=== PATIENT | male | born 1960 | race Caucasian/White ===

== ENCOUNTER 2016-12-14 06:41 | Inpatient (IN) | payer BC ==
[~2016-12-14] VITALS: Ht 167.6 cm; Wt 90.0 kg
[2016-12-14] VITALS (11 sets, daily range): BP systolic 143–178; BP diastolic 78–91; PULSE 63–76; RESP 16–18; TEMP 97.9–98.7; O2SAT 97
[~2016-12-14 06:41] MED LIST: ASPI325T PO; CLOP75 PO; GLUCTAB PO; LEVEMIR SQ; LISI-360 PO; LOPR100T PO; RANI150T PO; ZOCO10TA PO
[2016-12-14] MEDS ORDERED: IOHEXOL 350 MG/ML 100 ML BTL (for Cath Lab) OTHER ONE (06:42)
[2016-12-14] MEDS: NS 1000P @30 MLS/HR (KVO) IV SCH (07:15)
[2016-12-14] MEDS ORDERED: LISI10TA3 PO (07:38)
[2016-12-14] MEDS ORDERED: OMEGCAP PO (07:38)
[2016-12-14] MEDS ORDERED: METF500T PO (07:38)
[2016-12-14] MEDS ORDERED: INSU1INJ13 SQ (07:38)
[2016-12-14] MEDS ORDERED: METO100T PO (07:38)
[2016-12-14] MEDS ORDERED: PRAV20TA2 PO (07:38)
[2016-12-14] MEDS ORDERED: NOVOINJ3 SQ (07:38)
[2016-12-14] MEDS ORDERED: COQ-30CA2 (07:38)
[2016-12-14] MEDS ORDERED: MULTTAB67 PO (07:38)
[2016-12-14] MEDS ORDERED: PANT40TA3 PO (07:38)
[2016-12-14] MEDS ORDERED: ASPI81TA5 PO (07:38)
[2016-12-14] MEDS ORDERED: HEPARIN-NS/PF INJ 1,000 ML ONE (08:12)
[2016-12-14] MEDS ORDERED: MIDAZOLAM HCL 2 MG/2 ML VIAL ONE ×2 (08:16→08:34)
[2016-12-14] MEDS ORDERED: ONDANSETRON HCL 4 MG/2 ML VIAL IV PUSH PRN (09:00)
[2016-12-14] MEDS ORDERED: LIDOCAINE HCL 1% 50 ML VIAL INFIL PRN (09:00)
[2016-12-14] MEDS ORDERED: MISC INFORMATION XX ONE (09:00)
[2016-12-14] MEDS ORDERED: SODIUM CHLOR 0.9% 250 ML INJ 250 ML IV PRN (09:00)
[2016-12-14] MEDS ORDERED: BACITRACIN OINT 0.9 GM PKT TOP ONE (09:00)
[2016-12-14] MEDS ORDERED: ATROPINE SULFATE 1 MG/ML VIAL IV PUSH PRN (09:00)
[2016-12-14] MEDS ORDERED: METOCLOPRAMIDE HCL 10 MG/2 ML VIAL IV PUSH PRN (09:00)
--- NOTE | 2016-12-14 09:01 | CATHPROC ---
[employer] HIS Report Study Information Study Number Admission Scheduled Start Study Start [id number] Dec 14 2016 6:41AM 12/14/2016 Dec 14 2016 8:03AM [facility] Cardiac Catheterization Admit Source Facility Department Other [facility] - Agronomy Instructor Physician and Clinical Staff Initial MD Jarvis, Nick Engine Testerdiana Patterson RN, Pal Mendez cathlab, cathlab Recorder Kathleen Urrutia,STICKER OPERATOR TECH2 Scrub Pema Lindsay,RT(R) Procedures Performed Procedure Location (Site) Vessel Name Angiogram LV LV Ventricle Coronary Angiograms LCA Left Coronary Coronary Angiograms RCA Right Coronary L Heart Cath Equipment Time Editor & Co Founder Description Size Mfg Part Number Used/Scraped TRANSDUCER, TRUWAVE [id number] 08:39 MARIEE PARKER * Used W/STOCKCOCK *[id number] [id number] *[id number] [id number] *[id number] [id number] *[id number] 08:39 [employer] PACK, CCL CUSTOM * Used *[id number] 08:39 [employer] PACER PEN, SKIN DUAL W/ RULER * Used *[id number] 08:39 [employer] MEDICAL SHEATH, FR6.5 PRELUDE 11CM FR 6.5 038ACT Used *[id number] 08:39 [employer] MEDICAL WIRE, 3MMJ .035 180CM 180CM Used *[id number] 08:39 NAM[employer] MANIFOLD, 4 PORT * Used *[id number] 08:39 [employer] OMNIPAQUE, 350 MG, 100ML 100ML [id number] Used 08:49 [employer] OMNIPAQUE, 350 MG, 50ML 50ML [id number] Used [id number] 08:39 [employer] BLANKET,WARM AIR CCL * Used *[id number] History: Allergies Allergy Reaction No Known Allergies History: Risk Factors Family History of Hypertension Dyslipidemia Previous ID Previous Heart Failure Premature CAD Yes Yes Yes Yes No Prior Valve Prior PCI Prior PCIDate Prior CABG Surgery No Yes 05/24/2000 No Cerebrovascular Peripheral Artery Chronic Lung On Dialysis Diabetes Diabetes Therapy Disease Disease Disease No No No No Yes Oral History: Stress Tests Stress or Imaging Studies Performed Yes Standard Exercise Stress Test No Stress Echo No Stress Test SPECT No Stress Test CMR Stress Test CMR Result Yes Negative Cardiac CTA Coronary Calcium Score No No History: Other Disease Selection Items CAD HTN History: ID/CV Data Previous Cath Date 05/24/2012 Labs Hgb (g/dl) Hct (%) WBC (l/cumm) Platelets (thousands) 11.60-17.00 35.00-51.00 4.00-11.00 150.00-450.00 14.4 41.6 5.4 170 Glucose (mg/dl) BUN (mg/dl) Creatinine (mg/dl) BUN:Creatinine (1:x) 74.00-106.00 7.00-18.00 0.50-1.30 10.00-20.00 139 23 0.9 25.6 Na (meq/l) K (meq/l) 136.00-145.00 3.50-5.10 143 4.1 INR (PTT:PT) 0.90-1.10 1.1 Medication Medication Total Dose (Bolus/Oral) Medication Total Dosage/Unit 1% XYLOCAINE 15 mL VERSED 3 mg Medications (Bolus/Oral) Medication Time Given Dosage/Unit Administered By Reason VERSED 12/14/2016 8:29:48 AM 2 mg Pal Patterson RN 2 mg VERSED given in lab by Pal Patetrson RN in Right Antecubital via Peripheral IV. Ordered by Nick Medellin ms. 1% XYLOCAINE 12/14/2016 8:34:20 AM 15 mL Nick Jarvis 15 mL 1% XYLOCAINE given in lab by Nick Jarvis in Right Groin via Subcutaneous. Ordered by Nick Medellin ms. VERSED 12/14/2016 8:35:34 AM 1 mg Pal Patterson RN 1 mg VERSED given in lab by Pal Patterson RN in Right Antecubital via Peripheral IV. Ordered by Nick Medellin ms. Medication (Drip) Medication Time Given Dosage/Unit Concentration/Unit Diluent (ml) Solution IV Solutions 12/14/2016 8:05:31 AM 0 mL (IV) 500 NaCl .9 IV Solutions given in lab by Pal Patterson RN in Right Antecubital via Peripheral IV. Pump/Drip Flow = 20 ml/hr using NaCl .9. Ordered by Nick Jarvis. Initial Case Assessment Cardiovascular HR Rhythm NIBP Chest Pain 61 NSR 165/89 0 Edema Present Skin color Skin None Normal Warm Dry Circulatory - Right Pulses Dorsalis Pedis Femoral 2 2 Scale (0,1,2,3,4,d) Circulatory - Left Pulses Dorsalis Pedis Femoral 2 2 Scale (0,1,2,3,4,d) Neurological State Oriented to time-place- Alert Moves all extremities person Respiration - General Respiration Rate SpO2 (%) (B/min) 16 98 Final Case Assessment Cardiovascular HR Rhythm NIBP Chest Pain 72 NSR 154/80 0 Edema Present Skin color Skin None Normal Warm Dry Circulatory - Right Pulses Dorsalis Pedis Femoral 2 2 Scale (0,1,2,3,4,d) Circulatory - Left Pulses Dorsalis Pedis Femoral 2 2 Scale (0,1,2,3,4,d) Neurological State Oriented to time-place- Alert Moves all extremities person Respiration - General Respiration Rate SpO2 (%) (B/min) 18 94 Chronological Log Time Study Chronological Log 8:05:22 Patient arrived via Bed. 8:05:23 Patient Name, D.O.B, / Armband Verified By R.N. 8:05:24 Consent signed by the physician and the patient and verified by the Agronomy Instructor staff. 8:05:24 Pre-op and post- op instructions given; patient acknowledges understanding of instructions. 8:05:25 Verbal Stimulation=2 Physical Stimulation=2 Airway=2 Respiration=2 TOTAL=8. (0=absent, 1=li mited, 2=present) 8:05:26 Presedation assessment performed by Agronomy Instructor RN. 8:05:26 Immediate Presedation assesment performed by physician. 8:05:27 Patient has been NPO for More than 6Hrs. 8:05:27 NO Skin Breakdown- 8:05:29 Patient Warmer Placed on the Table. 8:05:30 Neida Prominences Protected 8:05:30 A # 20 IV was noted in the Antecubital (right). Grade = 0 IV Solutions given in lab by Pal Patterson RN in Right Antecubital via Peripheral IV. Pump/Drip Flow = 20 ml/hr using 8:05:31 NaCl .9. Ordered by Nick Jarvis. 8:05:32 History and physical on the chart or being dictated. Vitals capture started with the following parameters, Patient=Adult, Interval=5 min, Initial Pr eupqfa=728 mmHg, 8:09:27 Deflation Rate=5 mmHg, Cuff placed on Left Arm 8:10:04 HR=61 bpm, NUEN=337/89 mmhg, SpO2=98.0 %, Resp=12 B/min, Pain=0, Gloria=10, Peterson=2 Assessment: Initial Case, HR=61 BPM, Rhythm=NSR, DJOL=667/89 mmhg, Chest Pain=0, Edema=None, Color=Normal, Skin = Warm, Dry Right Pulses: Ananda Ped=2, Femoral=2 8:11:04 Left Pulses: Ananda Ped=2, Femoral=2 Neurological: State=Alert, Ox3, WONG Respiration: Resp=16 B/min, SpO2=98 % 8:11:14 Reference ECG taken 8:15:10 HR=60 bpm, UILV=367/83 mmhg, SpO2=99.0 %, Resp=7 B/min, Pain=0, Gloria=10, Peterson=2 8:18:21 Bilateral groins prepped with 2% chlorhexidine, and draped after a 3 minute waiting time. 8:20:09 HR=58 bpm, WQOG=627/85 mmhg, SpO2=98.0 %, Resp=15 B/min, Pain=0, Gloria=10, Peterson=2 8:21:16 Pressure channel 1 zeroed. 8:24:31 MD paged 8:25:06 HR=57 bpm, GGNW=211/85 mmhg, SpO2=99.0 %, Resp=13 B/min, Pain=0, Gloria=10, Peterson=2 8:28:09 MD arrived. 8:28:12 Contrast Scanned 8:28:14 Immediate Presedation assesment performed by physician. 8:29:48 2 mg VERSED given in lab by Pal Patterson RN in Right Antecubital via Peripheral IV. Ordered by Nick Jarvis. 8:30:07 HR=62 bpm, YHCT=702/87 mmhg, SpO2=99.0 %, Resp=10 B/min, Pain=0, Gloria=10, Peterson=2 Time Out. Correct patient, correct procedure, correct physician, power injector not loaded with contrast with surgical 8:33:14 team present. Time Out Concurred by MD and individual staff in procedure. 8:33:36 Case Start 8:34:20 15 mL 1% XYLOCAINE given in lab by Nick Jarvis in Right Groin via Subcutaneous. Ordered by Nick Jarvis. 8:35:08 HR=70 bpm, DRVW=883/88 mmhg, SpO2=96.0 %, Resp=13 B/min, Pain=0, Gloria=10, Peterson=2 8:35:34 1 mg VERSED given in lab by Pal Patterson RN in Right Antecubital via Peripheral IV. Ordered by Nick Javris. 8:38:18 Access site was Right Femoral Artery. 8:38:34 A SHEATH, FR6.5 PRELUDE 11CM FR 6.5 was advanced into the Fem Art (right) using the Modified Seldinger technique. A JL 4.0 INFINITI CATHETER FR 6 was advanced over a wire. OMNIPAQUE, 350 MG, 100ML 100ML was use d for 8:39:06 injections. 8:40:13 HR=62 bpm, ZFBE=012/75 mmhg, SpO2=96.0 %, Resp=14 B/min, Pain=0, Gloria=10, Peterson=2 Recorded Pressure: Ao, HR=65, Condition=Condition 1 8:40:21 (Aorta) Ao 140/73/100 8:40:45 The LCA was injected and visualized at various angles. OMNIPAQUE, 350 MG, 100ML 100ML used. 8:43:06 Catheter was removed A JR 4.0 INFINITI CATHETER FR 6 was advanced over a wire. OMNIPAQUE, 350 MG, 100ML 100ML was use d for 8:43:08 injections. 8:43:23 The RCA was injected and visualized at various angles. OMNIPAQUE, 350 MG, 100ML 100ML used. 8:43:40 LV INJECTOR LOADED WITH CONTRAST AND VERIFIED TO BE FREE OF AIR BY PAL PATTERSON RN 8:44:32 Catheter was removed A PIGTAIL STR INFINITI CATHETER FR 6 was advanced over a wire. OMNIPAQUE, 350 MG, 100ML 100ML wa s used for 8:44:33 injections. Recorded Pressure: LV, HR=72, Condition=Condition 1 8:45:15 (Left Ventricle) LV 130/6/15 8:45:49 HR=68 bpm, MAZU=786/77 mmhg, SpO2=95.0 %, Resp=16 B/min, Pain=0, Gloria=10, Peterson=2 8:48:35 The LV was injected at 10 cc/sec for a total of 30. OMNIPAQUE, 350 MG, 50ML 50ML used. Recorded Pressure: LV, Ao, HR=66, Condition=Condition 1 8:48:54 (Left Ventricle) LV 141/8/13, (Aorta) Ao 139/65/96 8:49:09 Catheter was removed 8:50:00 Case End 8:50:07 HR=72 bpm, KJKV=299/80 mmhg, SpO2=94.0 %, Resp=18 B/min, Pain=0, Gloria=10, Peterson=2 8:54:14 Catheter(s) removed without difficulty 8:54:21 Sheath(s) left in place, will be removed in Holding Area 8:54:24 Sterile dressing applied to site 8:54:25 No case complications noted. 8:54:26 Cine recording checked. 8:54:31 Bedside Report will be given. 8:54:32 Contrast Scanned 8:54:35 A Left Heart Cath was performed. 8:55:09 Vitals capture stopped. Assessment: Final Case, HR=72 BPM, Rhythm=NSR, SVIG=271/80 mmhg, Chest Pain=0, Edema=None, Col or=Normal, Skin = Warm, Dry Right Pulses: Ananda Ped=2, Femoral=2 8:55:14 Left Pulses: Ananda Ped=2, Femoral=2 Neurological: State=Alert, Ox3, WONG Respiration: Resp=18 B/min, SpO2=94 % 8:57:40 [facility] Study - Contrast Media Used In Study Contrast Total Opened (mL) Total Used (mL) Total Wasted (mL) Omnipaque 80 80 0 End Study - Maximum Contrast Load Max Contrast Load (mL) 485.1 End Study - Radiation Exposure Fluoro Time (minutes) 1.2 End Study - Patient Disposition Complications Transferred To Telemetry Bed
--- NOTE | 2016-12-14 09:24 | MA ---
cc: JANET POP MD DATE: 12/14/2016 PROCEDURAL STATEMENT The patient was prepped and draped in usual fashion. A six sheath was inserted percutaneously in the right femoral artery. Coronary angiography was done with Nasir preformed catheters. Left ventriculography was done with pigtail catheter. RESULTS CORONARY ANGIOGRAPHY The left main coronary demonstrated stenosis 75-80% in its distal portion. The left anterior descending artery demonstrated mild luminal irregularities in its proximal portion. Intraluminal stent was present in the midportion of the artery with evidence for in-stent stenosis of approximately 90%. The remainder of the LAD demonstrated a 50% stenosis in the midportion and distal portion artery was free from disease. The first diagonal branch was a good size branch, some mild luminal irregularities were present and no significant stenoses were seen. Left circumflex artery demonstrated a 90% stenosis at its origin from the left main. A first obtuse marginal was given off which was normal. The distal circumflex then demonstrated a complex high-grade stenosis of approximately 80-90% with the distal portion of the artery free from disease. The left circumflex artery was anatomically dominant. A what appeared to be ulcerated plaque was present in the midportion of the artery compromising the lumen by approximately 50%. The posterolateral branch was then given off which was normal. The posterior descending branch demonstrated high-grade stenosis of approximately 90% and it was reconstituted distally without significant stenosis. Left ventriculography demonstrated normal left ventricular size with overall EF estimated at 60-65%. No mitral regurgitation was present. Aortic outflow track appeared normal. HEMODYNAMICS Left ventricular pressure was 141/8. There was no gradient across the aortic valve. Aortic pressure was 139/65. CONCLUSION The patient demonstrates coronary disease as described above. He would appear to be a candidate for bypass grafting to the distal LAD, first diagonal, circumflex, first obtuse marginal and distal right coronary artery with consideration for a graft into the posterolateral branch as well. MD JIMMIE Yusuf/GLORY /9:02 AM /9:09 AM
[2016-12-14] MEDS ORDERED: MORPHINE SULFATE 4 MG/ML INJ IV PUSH ONE (09:30)
[2016-12-14] MEDS: LORazepam 2 MG/ML VIAL IV PUSH PRN ×2 (09:36→21:45)
--- NOTE | 2016-12-14 10:30 | EKG ---
Date Performed: 12/14/2016 Time Performed: 07:34:20 PTAGE: 56 years EKG: Sinus rhythm . Inferior infarct - age undetermined Abnormal ECG Compared to prior tracing no significant change PREVIOUS TRACING : 06/13/2015 17.02 DOCTOR: Kahlil Wynn Interpretating Date/Time 12/14/2016 10:27:30
[2016-12-14] MEDS ORDERED: PAPAVERINE INJ 60 MG, NITROGLYCERIN INJ 100 MCG, DILTIAZEM INJ 100 MG in SODIUM CHLORID... IRRIGATION SCH (12:00)
[2016-12-14] MEDS ORDERED: ceFAZolin 2 GM PREMIX 50 ML IV SCH (12:00)
[2016-12-14] MEDS ORDERED: METOPROLOL TARTRATE 25 MG TAB PO SCH (12:00)
[2016-12-14] MEDS ORDERED: INSULIN REGULAR (IV INFUSION) 100 UNITS in SODIUM CHLORIDE 0.9% INJ 99 ML IV PRN (12:00)
[2016-12-14] MEDS ORDERED: CHLORHEXIDINE GLUCONATE 4% SOLN 120 ML BTL TOPICAL SCH (12:00)
[2016-12-14] MEDS ORDERED: CEFAZOLIN INJ 500 MG in SODIUM CHLORIDE 0.9% IRR BTL 500 ML IRRIGATION SCH (12:00)
[2016-12-14] MEDS ORDERED: DEXTROSE 50% IN WATER 50 ML VIAL(D50) IV PUSH PRN ×2 (12:00→12:15)
[2016-12-14] MEDS ORDERED: SODIUM CHLORIDE 0.9% FLUSH 10 ML FLUSH IV FLUSH PRN (12:00)
[2016-12-14] MEDS ORDERED: GLUCAGON 1 MG/ML VIAL OTHER PRN (12:15)
--- NOTE | 2016-12-14 12:37 | PD.CAR.PN ---
CVT Progress Note Subjective/Hospital Course: sts data discussed with pt RISK SCORES About the STS Risk Calculator Procedure: CAB Only Risk of Mortality: 0.425% Morbidity or Mortality: 6.786% Long Length of Stay: 1.91% Short Length of Stay: 68.619% Permanent Stroke: 0.498% Prolonged Ventilation: 4.067% DSW Infection: 0.286% Renal Failure: 1.358% Reoperation: 3.073% Objective: Vital Signs Date Time Temp Pulse Resp B/P (MAP) Pulse Ox O2 Delivery O2 Flow Rate FiO2 12/14/16 09:08 96 Room Air 12/14/16 07:35 98.7 68 18 143/91 (108) 97 Nichole Galdamez Dec 14, 2016 12:37
--- NOTE | 2016-12-14 13:25 | RADRPT ---
EXAM DATE/TIME: 12/14/2016 12:51 [facility] COMPARISON: No previous studies available for comparison. INDICATIONS : Preop cardiac surgery. MEDICAL HISTORY : Hypercholesterolemia. Myocardial infarction. Renal calculi. Coronary artery disease. HTN. Type II Aracelis betes. Jaundice as a child. Skin cancer. Hepatitis as a child. SURGICAL HISTORY : Coronary artery stent. Kidney stone removal x2. Cardiac cath. ENCOUNTER: Initial ACUITY: 1 day PAIN SCORE: 0/10 LOCATION: Bilateral neck PEAK SYSTOLIC VELOCITIES (cm/sec): ICA/CCA RATIO: Right: 0.9 Left: 1.3 ICA: Right: 55.7 Left: 92.9 CCA: Right: 63.3 Left: 69.3 ECA: Right: 109.7 Left: 125.6 VERTEBRAL: Right: 26.1 antegrade Left: 29.6 antegrade Elevated flow velocities and ICA/CCA ratios have been found to correlate with increased degrees of vessel stenosis, calculated as percentage of diameter relative to a normal segment of distal ICA/CCA FINDINGS: RIGHT CAROTID: No significant stenosis is visualized. The waveforms are within normal limits. LEFT CAROTID: Mild calcified plaque seen in the region of the carotid bulb. The waveforms are within normal limits . VERTEBRAL ARTERIES: Antegrade flow is seen in both vertebral arteries. CONCLUSION: Calcified plaque in the left carotid bulb and proximal internal carotid artery. Hemodynamic profile on both sides characteristic of less than 50% stenosis. Rajesh De Paz MD on December 14, 2016 at 13:22 Board Certified Radiologist. This report was verified electronically.
[2016-12-14] MEDS ORDERED: PILL SPLITTER OTHER PRN (13:45)
--- NOTE | 2016-12-14 14:09 | RADRPT ---
EXAM DATE/TIME: 12/14/2016 13:09 [facility] COMPARISON: No previous studies available for comparison. INDICATIONS : Preop cardiac surgery. MEDICAL HISTORY : Hypercholesterolemia. Myocardial infarction. Renal calculi. Coronary artery disease. HTN. Type II Aracelis betes. Jaundice as a child. Skin cancer. Hepatitis as a child. SURGICAL HISTORY : Coronary artery stent. Kidney stone removal x2. Cardiac cath. ENCOUNTER: Initial ACUITY: 1 day PAIN SCORE: 0/10 LOCATION: Left leg. TECHNIQUE: Venous ultrasound of the left and right leg was performed from the inguinal ligament to the proximal calf. Real-time, color Doppler and spectral tracing, compression and augmentation techniques were us ed. FINDINGS: RIGHT LEG: There is normal compressibility of the deep venous system from the inguinal region to the proximal ca lf. No echogenic clot is seen in the lumen of the common femoral, femoral, popliteal, and posterior tibial veins. There is a normal response of the venous system to proximal and distal augmentation an d respiration. LEFT LEG: There is normal compressibility of the deep venous system from the inguinal region to the proximal ca lf. No echogenic clot is seen in the lumen of the common femoral, femoral, popliteal, and posterior tibial veins. There is a normal response of the venous system to proximal and distal augmentation an d respiration. CONCLUSION: 1. No sonographic evidence for lower extremity DVT. Keenan Washington MD on December 14, 2016 at 14:04 Board Certified Radiologist. This report was verified electronically.
--- NOTE | 2016-12-14 14:24 | RADRPT ---
EXAM DATE/TIME: 12/14/2016 13:26 [facility] COMPARISON: No previous studies available for comparison. INDICATIONS : Preop cardiac surgery. MEDICAL HISTORY : Hypercholesterolemia. Myocardial infarction. Renal calculi. Coronary artery disease. HTN. Type II Aracelis betes. Jaundice as a child. Skin cancer. Hepatitis as a child. SURGICAL HISTORY : Coronary artery stent. Kidney stone removal x2. Cardiac cath. ENCOUNTER: Initial ACUITY: 1 day PAIN SCORE: 0/10 LOCATION: Bilateral leg. GREATER SAPHENOUS VEIN THIGH: PROXIMAL: Right 6 mm Left 6 mm MID: Right 4 mm Left 4 mm DISTAL: Right 3 mm Left 2 mm CALF: PROXIMAL: Right 2 mm Left 2 mm MID: Right 2 mm Left 2 mm DISTAL: Right 2 mm Left 2 mm FINDINGS: The venous system of the lower extremities are patent by color Doppler imaging. Measurements of the leg veins (in mm) are listed above. CONCLUSION: 1. Lower extremity venous mapping, as above. Keenan Washington MD on December 14, 2016 at 14:22 Board Certified Radiologist. This report was verified electronically.
--- NOTE | 2016-12-14 14:28 | MB ---
cc: NATI HAWK DATE OF CONSULTATION: 12/14/2016 DATE OF : 1960 HISTORY OF PRESENT ILLNESS This gentleman has a history of coronary artery disease and PTCA and stent x2 in 2003 following an [place], and also again in 2012 where he had a PTCA and stent to the LAD. He had been doing well. He fast walks 5K races. He was starting to have some pain with exertion and heaviness in his left arm. He had follow-up appointment with Dr. Jarvis and underwent cardiac catheterization which showed ejection fraction of 60%. The left main had a 75-80% in the distal portion. The midportion of the LAD had in-stent stenosis of 90%. The left circumflex demonstrated a 90% stenosis at its origin from the left main. The distal circumflex had 80-90%. The posterior descending branch also demonstrated a high-grade stenosis of 90%. We were consulted to evaluate for coronary artery bypass grafting. PAST MEDICAL HISTORY 1. Coronary artery disease with prior stenting x3. 2. Diabetes mellitus; on insulin. 3. Hyperlipidemia. 4. Hypertension. PAST SURGICAL HISTORY Other surgeries include: 1. Right shoulder surgery. 2. Kidney stones with lithotripsy. ALLERGIES He has no known allergies. MEDICATIONS His home medications include: 1. Aspirin 81 mg daily. 2. Lisinopril 10 mg p.o. b.i.d. 3. Metformin 500 mg b.i.d. 4. Metoprolol 100 mg b.i.d. 5. Multivitamin. 6. NovoLog sliding scale insulin. 7. Protonix 40 mg. 8. Pravachol. 9. Tresiba FlexTouch injector q.h.s. FAMILY HISTORY Father age 62 from unknown cause, but apparently during a heart catheterization. Brother from an [place] at 52. Mother is relatively healthy. SOCIAL HISTORY , has two children. No tobacco or alcohol. Works with a construction company. REVIEW OF SYSTEMS GENERAL: In general no night sweats, fever, heat or cold intolerance. SKIN: No psoriasis, itching or hives. HEENT: No blurred vision or hearing loss. RESPIRATORY: No cough or shortness of breath. CARDIOVASCULAR: As above in the HPI. GASTROINTESTINAL: No diarrhea or vomiting. GENITOURINARY: No burning, frequency, urgency. AUTOMOTIVE FUEL SYSTEMS CONVERTER: No history of TIA, CVA, seizure disorder. ENDOCRINE: Positive for diabetes. PHYSICAL EXAMINATION VITAL SIGNS: Blood pressure 140/90, heart rate 68. Room air saturation 96%. GENERAL: Patient is awake and alert, in no acute distress. HEENT: Head is normocephalic, atraumatic. Pupils equal and reactive. Oral mucosa pink and moist. NECK: Supple. No JVD. HEART: Heart sounds S1, S2. Regular rate and rhythm. No rubs, murmurs or gallops. LUNGS: Clear to auscultation. No wheezes, rales or rhonchi. ABDOMEN: Soft, nontender. No masses or organomegaly. EXTREMITIES: No cyanosis, clubbing or edema. LABORATORY Lab work is pending; however, he did have some outpatient labs which include: Sodium 143, potassium 4.1, BUN 23, creatinine 0.94. Hemoglobin 14, hematocrit 42, white cell count 5.4, platelet count 170. INR was 1.1. IMAGING Carotid ultrasound and chest x-ray pending. EKG EKG shows sinus rhythm with some Q-waves in the inferior wall. IMPRESSION AND PLAN This is a 56-year-old male with history of coronary artery disease, prior stenting in the past with multivessel disease. The cardiac films will be reviewed by Dr. Nati Hawk. Evaluation for coronary artery bypass grafting procedures, alternatives and risks will be discussed with the patient. He is agreeable to proceed. The STS data will be documented in the electronic record. Further planning per Dr. Nati Hawk. Dictated by: HAWA Mcfadden I have reviewed the above note, the patient's cath films and other studies, and recommend CABG. The LAD is not a great target with diffuse disease. Risks and benefits were discussed and he agrees to proceed tomorrow, 12/15/16. MD HA Travis/REBECCA /12:38 PM /2:25 PM YULI
--- NOTE | 2016-12-14 14:51 | RADRPT ---
EXAM DATE/TIME: 12/14/2016 14:49 [facility] COMPARISON: No previous studies available for comparison. INDICATIONS : Evaluate for pneumonia, pneumothorax, or communicable disease. Pre op CABG. MEDICAL HISTORY : Cardiovascular disease. SURGICAL HISTORY : Cardiac caths. ENCOUNTER: Initial ACUITY: 1 day PAIN SCORE: 0/10 LOCATION: Bilateral chest FINDINGS: PA and lateral views of the chest demonstrate the lungs to be symmetrically aerated without evidence of mass, infiltrate or effusion. The cardiomediastinal contours are unremarkable. Osseous structure s are intact. CONCLUSION: The lungs are clear. Rajesh De Paz MD on December 14, 2016 at 14:49 Board Certified Radiologist. This report was verified electronically.
[2016-12-14 15:16] LABS: BLOOD, URINE NEG (NEG); COMMENT (UR) CULT NOT INDICATED; CULTURE IF INDICATED CULT NOT INDICATED; GLUCOSE,URINE NEG (NEG); KETONE, URINE NEG (NEG); MUCUS URINE FEW /lpf (OCC); NITRITE,URINE NEG (NEG); PH, URINE 5.5 (5.0-8.5); URINE COLOR YELLOW (YELLW/STRAW)
[2016-12-14] MEDS: PRAVASTATIN SOD 20 MG TAB PO SCH (15:31)
[2016-12-14] MEDS: ACETAMINOPHEN 325 MG TAB PO PRN ×2 (17:26→21:45)
[2016-12-14] MEDS: metFORMIN HCL 500 MG TAB PO SCH (17:30)
[2016-12-14 17:58] LABS: HEMATOCRIT 42.9 % (39.0-51.0); MEAN CELL VOLUME 88.1 FL (80.0-100.0); MEAN CORPUSCULAR HEMOGLOBIN 30.7 PG (27.0-34.0); MEAN CORPUSCULAR HGB CONC 34.8 % (32.0-36.0); PLATELET COUNT 157 TH/MM3 (150-450); RED BLOOD COUNT 4.87 MIL/MM3 (4.50-5.90); RED CELL DISTRIBUTION WIDTH 13.2 % (11.6-17.2); REVIEW FLAG FINAL; WHITE BLOOD COUNT 6.3 TH/MM3 (4.0-11.0)
[2016-12-14 18:12] LABS: PROTHROMBIN TIME - PATIENT 11.3 SEC (9.8-11.6)
[2016-12-14 18:19] LABS: ANION GAP 7 MEQ/L (5-15); AST (GOT) 25 U/L (15-37); BICARBONATE 26.4 MEQ/L (21.0-32.0); BLOOD UREA NITROGEN 16 MG/DL (7-18); CHLORIDE 110 MEQ/L (98-107); GLOMERULAR FILTRATION RATE 86 ML/MIN (>89); POTASSIUM 3.8 MEQ/L (3.5-5.1); SODIUM (NA) 143 MEQ/L (136-145)
[2016-12-14 18:21] LABS: ALKALINE PHOSPHATASE 58 U/L (45-117); ALT (GPT) 52 U/L (12-78); TOTAL BILIRUBIN ADULT 0.8 MG/DL (0.2-1.0)
[2016-12-14] MEDS: INSULIN ASPART SUPPLEMENTAL SCALE SQ SCH (21:00)
[2016-12-14] MEDS: SODIUM CHLORIDE 0.9% FLUSH 10 ML FLUSH IV FLUSH SCH (21:06)
[2016-12-14] MEDS: METOPROLOL TARTRATE 25 MG TAB PO SCH (21:06)
[2016-12-15] VITALS (20 sets, daily range): BP systolic 93–165; BP diastolic 55–90; PULSE 58–94; RESP 9–16; TEMP 97.4–98.7; O2SAT 92–97
[2016-12-15] MEDS ORDERED: LACTATED RINGER'S 1000 ML IV PRN (05:15)
[2016-12-15] MEDS ORDERED: SODIUM CHLORID 0.9% 500 ML IV PRN (05:15)
[2016-12-15] MEDS ORDERED: POVIDONE IODINE 5% (ANTISEPSIS KIT) 4 APPLICATIONS EACH NARE PRN (05:15)
[2016-12-15] MEDS ORDERED: CHLORHEXIDINE GLUCONATE 2 % 1 PACK (2 CLOTHS) TOPICAL PRN (05:15)
[2016-12-15] MEDS: NS 1000P @30 MLS/HR (KVO) IV SCH (07:15)
[2016-12-15] MEDS: INSULIN ASPART SUPPLEMENTAL SCALE SQ SCH ×2 (08:00→11:25)
--- NOTE | 2016-12-15 08:00 | PD.CARD.PN ---
Subjective Subjective Remarks Feels well. No chest pain. For CABG today Objective Medications Current Medications Medications (Trade) Dose Ordered Sig/Ana M Route Start Time Stop Time Status Last Admin Sodium Chloride 1,000 ml @ 30 mls/hr Q24H IV 12/14/16 07:15 12/14/16 07:15 (Ativan Inj) 0.5 mg UNSCH PRN IV PUSH 12/14/16 09:00 12/15/16 08:59 12/14/16 21:45 (Atropine Inj) 0.5 mg UNSCH PRN IV PUSH 12/14/16 09:00 Sodium Chloride 250 ml @ 500 mls/hr ONCE PRN IV 12/14/16 09:00 12/15/16 08:59 (Reglan Inj) 10 mg Q4H PRN IV PUSH 12/14/16 09:00 (Zofran Inj) 4 mg Q4H PRN IV PUSH 12/14/16 09:00 (Xylocaine 1% Inj (50 ml)) 10 ml UNSCH PRN INFIL 12/14/16 09:00 12/15/16 08:59 (Ecotrin Ec) 81 mg DAILY PO 12/15/16 09:00 (Glucophage) 500 mg BIDPC PO 12/14/16 18:00 (Pravachol) 20 mg DAILY PO 12/14/16 12:00 12/14/16 15:31 (NS Flush) 2 ml BID IV FLUSH 12/14/16 21:00 12/14/16 21:06 (NS Flush) 2 ml UNSCH PRN IV FLUSH 12/14/16 12:00 Papaverine HCl 60 mg/Nitroglycerin 100 mcg/Diltiazem HCl 100 mg/Sodium Chloride 100 ml @ 0 mls/hr DRAGLINE OPERATOR HELPER IRRIGATION 12/14/16 12:00 12/21/16 11:59 Cefazolin Sodium 500 mg/Sodium Chloride 505 ml @ 0 mls/hr DRAGLINE OPERATOR HELPER IRRIGATION 12/14/16 12:00 12/21/16 11:59 Cefazolin Sodium/ Dextrose 50 ml @ 150 mls/hr DRAGLINE OPERATOR HELPER IV 12/14/16 12:00 12/21/16 11:59 (Lopressor) 12.5 mg DRAGLINE OPERATOR HELPER PO 12/14/16 12:00 12/21/16 11:59 (Hibiclens 4% Top Soln) 1 applic DRAGLINE OPERATOR HELPER TOPICAL 12/14/16 12:00 12/21/16 11:59 12/14/16 23:00 Insulin Human Regular 100 units/ Sodium Chloride 100 ml @ 3 mls/hr TITRATE PRN IV 12/14/16 12:00 12/21/16 11:59 (D50w (Vial) Inj) 50 ml UNSCH PRN IV PUSH 12/14/16 12:00 (D50w (Vial) Inj) 50 ml UNSCH PRN IV PUSH 12/14/16 12:15 (Glucagon Inj) 1 mg UNSCH PRN OTHER 12/14/16 12:15 (NovoLOG SUPPLEMENTAL SCALE) 1 ACHS SLIDING SCALE SQ 12/14/16 17:00 (Lopressor) 25 mg Q12HR PO 12/14/16 21:00 12/14/16 21:06 (Pill Splitter) 1 ea UNSCH PRN OTHER 12/14/16 13:45 (Tylenol) 650 mg Q4H PRN PO 12/14/16 17:30 12/14/16 21:45 Lactated Ringer's 1,000 ml @ 30 mls/hr Q24H PRN IV 12/15/16 05:15 12/18/16 05:14 Sodium Chloride 500 ml @ 30 mls/hr [id number] PRN IV 12/15/16 05:15 12/18/16 05:14 (Betadine 5% Antisepsis Kit) 1 applic DRAGLINE OPERATOR HELPER PRN EACH NARE 12/15/16 05:15 12/18/16 05:14 (Chlorhexidine 2% Cloth) 3 pack DRAGLINE OPERATOR HELPER PRN TOPICAL 12/15/16 05:15 12/18/16 05:14 Vital Signs / I&O Vital Signs Date Time Temp Pulse Resp B/P (MAP) Pulse Ox O2 Delivery O2 Flow Rate FiO2 12/15/16 07:15 98.0 73 16 165/84 (111) 97 12/15/16 07:15 98.0 73 16 165/84 (111) 97 12/15/16 07:15 58 12/15/16 07:15 58 12/15/16 06:01 66 12/15/16 05:15 65 12/15/16 04:11 63 12/15/16 03:53 74 12/15/16 02:11 64 12/15/16 01:29 61 12/15/16 00:06 63 12/14/16 23:07 97.9 69 16 143/78 (99) 97 12/14/16 23:07 63 12/14/16 22:14 66 12/14/16 21:00 64 12/14/16 20:46 98.4 71 16 178/88 (118) 97 12/14/16 20:15 64 12/14/16 19:50 76 12/14/16 18:00 66 12/14/16 17:00 68 12/14/16 16:30 98.5 68 18 172/91 (118) 97 12/14/16 16:00 69 12/14/16 09:08 96 Room Air I/O 12/14/16 12/14/16 12/14/16 12/15/16 12/15/16 12/15/16 07:00 15:00 23:00 07:00 15:00 23:00 Intake Total 240 ml 240 ml Output Total 200 ml 200 ml Balance 40 ml 40 ml Intake Oral 240 ml 240 ml Output Urine Total 200 ml 200 ml # Bowel Movements 0 Physical Exam Groin OK Laboratory Laboratory Tests Test 12/14/16 14:30 12/14/16 14:35 12/14/16 17:32 Urine Color YELLOW Urine Turbidity CLEAR Urine pH 5.5 Urine Specific [place] GREATER THAN 1.050 Urine Protein NEG mg/dL Urine Glucose (UA) NEG mg/dL Urine Ketones NEG mg/dL Urine Occult Blood NEG Urine Nitrite NEG Urine Bilirubin NEG Urine Urobilinogen LESS THAN 2.0 MG/DL Urine Leukocyte Esterase NEG Urine WBC LESS THAN 1 /hpf Urine Mucus FEW /lpf Microscopic Urinalysis Comment CULT NOT INDICATED Nasal Screen MRSA (PCR) MRSA NOT DETECTED White Blood Count 6.3 TH/MM3 Red Blood Count 4.87 MIL/MM3 Hemoglobin 14.9 GM/DL Hematocrit 42.9 % Mean Corpuscular Volume 88.1 FL Mean Corpuscular Hemoglobin 30.7 PG Mean Corpuscular Hemoglobin Concent 34.8 % Red Cell Distribution Width 13.2 % Platelet Count 157 TH/MM3 Mean Platelet Volume 9.1 FL Prothrombin Time 11.3 SEC Prothromb Time International Ratio 1.0 RATIO Blood Urea Nitrogen 16 MG/DL Creatinine 0.91 MG/DL Random Glucose 144 MG/DL Total Protein 7.2 GM/DL Albumin 3.8 GM/DL Calcium Level 8.7 MG/DL Alkaline Phosphatase 58 U/L Aspartate Amino Transf (AST/SGOT) 25 U/L Alanine Aminotransferase (ALT/SGPT) 52 U/L Total Bilirubin 0.8 MG/DL Sodium Level 143 MEQ/L Potassium Level 3.8 MEQ/L Chloride Level 110 MEQ/L Carbon Dioxide Level 26.4 MEQ/L Anion Gap 7 MEQ/L Estimat Glomerular Filtration Rate 86 ML/MIN Imaging Last 24 hours Impressions Lower Extremity Ultrasound 12/14/161221 Signed Impressions: Service Date/Time: Wednesday, December 14, 2016 13:26 - CONCLUSION: 1. Lower extremity venous mapping, as above. Keenan Washington MD Lower Extremity Ultrasound 12/14/161221 Signed Impressions: Service Date/Time: Wednesday, December 14, 2016 13:09 - CONCLUSION: 1. No sonographic evidence for lower extremity DVT. Keenan Washington MD Assessment and Plan Assessment and Plan For CABG Nick Jarvis MD Dec 15, 2016 08:00
[2016-12-15] MEDS: ASPIRIN EC 81 MG TABEC PO SCH ×2 (08:13→08:15)
[2016-12-15] MEDS: metFORMIN HCL 500 MG TAB PO SCH (08:13)
[2016-12-15] MEDS: SODIUM CHLORIDE 0.9% FLUSH 10 ML FLUSH IV FLUSH SCH ×2 (08:14→19:30)
[2016-12-15] MEDS: METOPROLOL TARTRATE 25 MG TAB PO SCH (08:15)
[2016-12-15] MEDS: PRAVASTATIN SOD 20 MG TAB PO SCH (08:15)
[2016-12-15] MEDS ORDERED: CARDIOPLEGIC IRR 2,000 ML ONE (12:40)
[2016-12-15] MEDS ORDERED: HEPARIN SODIUM - IV 10,000 UNITS/10 ML VIAL ONE (12:40)
[2016-12-15] MEDS ORDERED: SODIUM BICARBONATE 8.4% INJ 50 ML ONE (12:41)
[2016-12-15] MEDS ORDERED: MANNITOL INJ 100 ML ONE (12:42)
[2016-12-15] MEDS ORDERED: ALBUMIN 25% INJ 50 ML IV ONE (12:42)
[2016-12-15] MEDS ORDERED: CALCIUM CHLORIDE 10% SOLN 1 GRAM/10 ML SYR ONE (12:43)
[2016-12-15] MEDS ORDERED: methylPREDNISolone SOD SUCC 125 MG/2 ML VIAL ONE (12:44)
[2016-12-15] MEDS ORDERED: HEPARIN SODIUM - SQ 10,000 UNITS/ML VIAL ONE (12:44)
[2016-12-15] MEDS ORDERED: ceFAZolin 2 GM PREMIX 50 ML ONE (12:45)
[2016-12-15] MEDS ORDERED: VANCOMYCIN HCL 1000 MG VIAL ONE (12:45)
[2016-12-15] MEDS ORDERED: POTASSIUM CHLORIDE 40 MEQ/20 ML VIAL ONE (13:33)
[2016-12-15 15:49] LABS: HEMOGLOBIN A1a 0.9 %; HEMOGLOBIN A1b 1.8 %; HEMOGLOBIN Ao 84.4 %; HEMOGLOBIN LA1C 2.3 %; HEMOGLOBIN P3 4.2 %
--- NOTE | 2016-12-15 16:24 | HHI.FF ---
Face to Face Verification Diagnosis: (1) S/P CABG (coronary artery bypass graft) (2) HTN (hypertension) (3) CAD (coronary artery disease) (4) DM (diabetes mellitus) (5) Hyperlipidemia (6) Hypertension Home Health Nursing Order: Signs/symptoms of disease process Diabetic education Medication education-adverse effect Wound care and dressing changes Instructions: Heart and Vascular Surgery patients *Special attention to sternal dressing Mandatory frequency Assess and evaluation, 4 days in a row The next week 3X week 2 times a week for 4 weeks 1 time a week for 5 weeks Schedule Heart and Vascular patients for full 60 day certification period Initial visit Review Open Heart Surgery Discharge Instructions (Sternal precautions, Activity, Elastic hose, Incision care, Driving, Incentive spirometry, Smoking, [place], Work and other) Need Betadine to paint incision Medication reconciliation Importance of follow up care/ check on appointments Make calendar record temperature daily When to call [facility] nurse, review instructions, phone list Incentive Spirometry, demonstration Visit 1- Begin discharge instruction for patient family and/ or caregiver using teach back method- Signs and symptoms of infection Disease characteristics Medicines and side effects Foods and nutrition/ appetite Infection control/ hand washing/ hygiene Visit 2- Continue teaching Discharge instructions- include additional information on smoking cessation , sternal dressing (sternal vac) Visit 3- Continue teaching- Cough and deep breathing, incision monitoring. Choose my plate Visit 4- Continue teaching- Discuss limitations Discuss how they are feeling Discuss progress toward goals Remaining visits- continue teaching and monitoring PREVENA Single Use Negative Wound Therapy System Caregiver Instruction Sheet 1. A Prevena dressing system was applied to the chest incision during surgery , to promote wound healing. It works via a suction device (negative pressure wound therapy) to remove low to moderate levels of exudate (drainage) and infectious materials. We recommend that the device stay in place for up to seven days, from day of surgery. 2. Day of Surgery___12/15/16 Day of Removal 12/22/16 3. The dressing should only be removed by a health care transitions nurse. Please arrange removal of device to coincide with Home Health visit and or with Nursing staff at Rehab 4. If skin reddening or irritation of skin occurs, or excessive drainage, please notify the Cardiovascular Surgeons office at [phone]. 5. Light showering is permissible; however the pump should be disconnected and placed in safe location, where it will not get wet. The dressing should not be exposed to direct spray or submerged in water. No bath tub / shower only. Ensure the end of the tubing attached to the dressing is facing down so that water does not enter the top of the tube. 6. To remove Prevena dressing: press purple button to turn off device / remove the suction. Then disconnect the tubing from the pump. The fixation strips should be stretched away from the skin and the dressing lifted at one corner and peeled back until it has been fully removed. 7. After removal, it is ok to shower daily using liquid dial soap and clean wash cloth, rinse and pat dry, and leave incision open to air dry. For any concerns regarding Prevena dressing, and or wounds, please contact Francesca Thayer, patient navigator at [phone] or notify the Cardiovascular Surgeons office at [phone]. Incentive spirometry Q1 hr x 10, while awake, also use acapella device hourly whole awake Sternal Breast Bone Precautions: NO pushing or pulling, ( pt must use sternal pillow to support chest with all activities and with coughing ( takes up to 3 months breast bone to heal ) Daily incision care: ok to shower daily, no tub bath. Wash all incisions with liquid dial soap, clean wash cloth to each site, rinse and pat dry. Observe for any signs of infection, such as drainage which is dark yellow, lugo, green or foul smelling. Immediately report to the surgeon any drainage from the chest incision, or legs, and for any abnormal drainage from the chest tube sites. Notify surgeon if any temp >101.5 degrees F. When specialty dressing removed/ or if you do not have one, continue to shower daily as above, then rinse and pat incision dry and paint with betadine daily x 5 days. Allow steri strips to fall off if you have any. Avoid lotions, creams, salves, oils, etc. for the first month Please see attached forms for additional instructions regarding post Open Heart specialty wound vacuum dressings. VIKKI or Prevena , Dressing to be removed by Nursing staff on __12/22/[address] Hawk patients , please obtain CBC, BMP, PA & Lat CXR in 2 weeks, results to Dr. Hawk ( prescription will be given) ( ) (Tele: [phone]) , F/U appointment: as per MO instructions: PCP in 2 weeks, CV surgeon 2 weeks, Aerial Gunner Superintendent 3-4 weeks For any questions regarding incisions/ dressing / meds / post op care or above Symptoms, Wednesday 8am-5pm Heart & Vascular Surgery Office ( Dr. Foss & Dr. Hawk), After Hours / Nights (5pm -8am) Weekends and Holidays Please call [facility] ([facility]) Charge Nurse I have seen patient Mohit Nichols on 12/15/16. My clinical findings support the need for the requested home health care services because: Patient has SOB Deconditioned w/ increased weakness I certify that my clinical findings support that this patient is homebound because: Post-op weakness Nichole Galdamez Dec 15, 2016 16:24
[2016-12-15] MEDS ORDERED: SUGAMMADEX SODIUM 200 MG/2 ML VIAL IV PUSH ONE ×2 (17:13)
[2016-12-15] MEDS ORDERED: DEXMEDETOMIDINE HCL 200 MCG/2 ML VIAL ONE (17:13)
[2016-12-15] MEDS ORDERED: ceFAZolin INJ 1,000 MG VIAL ONE (17:28)
--- NOTE | 2016-12-15 17:44 | PD.OP ---
cc: Nati Hawk MD; Nick Jarvis MD Operative Report Date of Surgery: Dec 15, 2016 Preoperative Diagnosis: (1) CAD (coronary artery disease) (2) Unstable angina Postoperative Diagnosis: same Procedure: CABG x 4 CUELLAR to LAD - fair SVG to D1 - fair SVG to OM2 SVG to PDA - fair Right leg EVH Anesthesia: Dr. Campos Surgeon: Nati Hawk Education And Development Manager(s): Ronny BHANDARI Operation and Findings: The risks, benefits, complications, treatment options, and expected outcomes were discussed with the patient. The possibilities of reaction to medication, pulmonary aspiration, perforation of viscus, bleeding, recurrent infection, the need for additional procedures, failure to diagnose a condition, and creating a complication requiring transfusion or operation were discussed with the patient. The patient concurred with the proposed plan, giving informed consent. The site of surgery properly noted/marked. The patient was taken to Operating Room, identified as Mohit Nichols and the procedure verified as CABG, EVH. A Time Out was held and the above information confirmed. Standard monitoring lines and Nascimento catheter were placed. General anesthesia was induced. The patient was prepped and draped in a sterile fashion. A median sternotomy was performed and electrocautery was used to obtain hemostasis. The left internal mammary artery was procured as a pedicle from the 7th rib to the 1st rib in the usual manner. Simultaneously right greater saphenous vein was procured from the right leg using a minimally invasive endoscopic technique. The vein was prepared for anastomosis and the leg wound was irrigated and closed in 2 layers. The pericardium was opened and a pericardial sling was created using interrupted 0 silk sutures. The patient was heparinized for cardiopulmonary bypass and the distal mammary pedicle was instrumented for anastomosis. The heart was instrumented for cardiopulmonary bypass in the usual manner. Antegrade blood cardioplegia was employed. The patient was placed on cardiopulmonary bypass. An aortic cross-clamp was applied and the heart was arrested using cold blood cardioplegia. Antegrade cardioplegia was administered after he each anastomosis. After adequate arrest, the distal right coronary circulation was investigated and the PDA was opened with a [place] blade and found to be a 1 millimeter fair target with diffuse disease. Saphenous vein was approximated to the PDA artery using a running 7 0 Prolene suture. The graft was measured for length and orientation and the proximal anastomosis was constructed to the ascending aorta using a running 5 0 Prolene suture after creating an aortotomy with a 5 millimeter punch. The 2nd circumflex marginal artery was then opened with a [place] blade and found to be a 1 mm fair target with diffuse disease. The OM2 artery was intramyocardial. Saphenous vein was approximated to the OM2 artery using a running 7 0 Prolene suture. The graft was measured for length and orientation and the proximal anastomosis was constructed to the ascending aorta using a running 5 0 Prolene suture after creating an aortotomy with a 5 millimeter punch. The D1 artery was opened with a [place] blade and found to be a 1 millimeter fair target with diffuse disease. Saphenous vein was approximated to the D1 artery using a running 7 0 Prolene suture. The graft was measured for length and orientation and was suspended from the pericardium. The distal LAD was opened with a [place] blade and found to be a 1 millimeter fair target with diffuse disease. The left internal mammary artery was approximated to the LAD using a running 7 0 Prolene suture. The pedicle was attached to the epicardium using interrupted 5 0 silk suture. The patient was systemically rewarmed and received a hotshot dose of warm blood cardioplegia. The aorta was vented and the proximal anastomosis to the D1 graft was accomplished using a running 5 0 Prolene suture after creating an aortotomy was a 5 millimeter punch. The cross-clamp was removed and all proximal and distal anastomoses were examined for hemostasis. The patient was weaned from cardiopulmonary bypass. Protamine was given. There was no adverse reaction. Decannulation was carried out without incident. Wound was checked for hemostasis which was obtained using electrocautery. A 36 Scottish mediastinal and 32 [place] left pleural chest tubes were placed and secured to the skin with 0 silk suture. The sternum was closed with stainless steel wire. The fascia was closed with 1. PDS. The subcutaneous tissue was closed using a running 2-0 Vicryl suture. The skin was closed with 4-0 Monocryl. Sterile dressings were placed. At the end of the operation, all sponge, instruments, and needle counts were correct. The patient was transferred to the CVICU in stable condition. Findings: The patient had relatively small and diffusely diseased distal targets. XC: 80 min CPB: 92 min Drains: mediastinal x 1 pleural x 1 Complications: none Disposition: to CVICU in stable condition Nati Hawk MD Dec 15, 2016 17:44
[2016-12-15] MEDS ORDERED: POTASSIUM CHLORIDE 20 MEQ CONTROLLED RELEASE TAB PO PRN ×2 (17:45)
[2016-12-15] MEDS ORDERED: ACETAMINOPHEN 325 MG TAB PO PRN (17:45)
[2016-12-15] MEDS ORDERED: DEXMEDETOMIDINE INJ 200 MCG in SODIUM CHLORIDE 0.9% INJ 50 ML IV PRN (17:45)
[2016-12-15] MEDS ORDERED: METOPROLOL TARTRATE 5 MG/5 ML VIAL IV PUSH PRN (17:45)
[2016-12-15] MEDS ORDERED: POTASSIUM CHLOR 20 MEQ PREMIX 100 ML IV PRN ×3 (17:45)
[2016-12-15] MEDS ORDERED: DEXTROSE 50% IN WATER 50 ML VIAL(D50) IV PUSH PRN (17:45)
[2016-12-15] MEDS ORDERED: SODIUM BICARBONATE 8.4% SOLN 50 MEQ/50 ML VIAL IV PUSH PRN ×2 (17:45)
[2016-12-15] MEDS ORDERED: CLEVIDIPINE INJ 50 ML IV PRN (17:45)
[2016-12-15] MEDS ORDERED: SODIUM CHLORIDE 0.9% FLUSH 10 ML FLUSH IV FLUSH PRN (17:45)
[2016-12-15] MEDS ORDERED: CALCIUM CHLORIDE INJ 1 GM in SODIUM CHLORIDE 0.9% INJ 100 ML IV PRN (17:45)
[2016-12-15] MEDS ORDERED: RESP: RACEPINEPHRINE 2.25% 0.5 ML NEB NEB PRN (17:45)
[2016-12-15] MEDS ORDERED: CALCIUM CHLORIDE 10% 1 GRAM/10 ML VIAL IV PUSH PRN (17:45)
[2016-12-15] MEDS ORDERED: ALBUMIN 5% INJ 250 ML IV PRN (17:45)
[2016-12-15] MEDS ORDERED: MAGNESIUM SULFATE INJ 2 GM in SODIUM CHLORIDE 0.9% INJ 100 ML IV PRN ×4 (17:45)
[2016-12-15] MEDS ORDERED: INSULIN REGULAR (IV INFUSION) 100 UNITS in SODIUM CHLORIDE 0.9% INJ 99 ML IV PRN (17:45)
[2016-12-15] MEDS ORDERED: ACETAMINOPHEN 650 MG SUPP RECTAL PRN (17:45)
[2016-12-15] MEDS ORDERED: Post-op Orders (for Pharmacy) MISC OTHER ONE (17:45)
[2016-12-15] MEDS ORDERED: hydrALAZINE HCL 20 MG/ML VIAL IV PUSH PRN (17:45)
[2016-12-15] MEDS ORDERED: RESP: ALBUTEROL 2.5 MG/IPRATROPIUM 0.5 MG NEB (PRN) NEB (17:45)
[2016-12-15] MEDS ORDERED: LACTATED RINGER'S 1000 ML INJ 500 ML IV PRN (18:00)
--- NOTE | 2016-12-15 19:01 | RADRPT ---
EXAM DATE/TIME: 12/15/2016 18:31 [facility] COMPARISON: CHEST PA & LAT, December 14, 2016, 14:49. INDICATIONS : Post CABG. MEDICAL HISTORY : Cardiovascular disease. SURGICAL HISTORY : Cardiac caths. ENCOUNTER: Initial ACUITY: 1 day PAIN SCORE: Non-responsive. LOCATION: Bilateral chest FINDINGS: Chest tube is present on the left side. NG tube is present with tip in the stomach. ET tube is presen t with tip overlapping approximately 3 cm above the jaiden. Right IJ line is present with tip overlap ping the expected region of the right atrium. The lungs are clear without infiltrate, nodule, or mass . There is no appreciable pleural effusion for technique. Heart and mediastinum are unremarkable. N o definite pneumothorax is seen for technique. CONCLUSION: No acute cardiopulmonary disease. Darnell Mcdermott MD on December 15, 2016 at 18:58 Board Certified Radiologist. This report was verified electronically.
[2016-12-15] MEDS: ACETAMINOPHEN 1000 MG/100 ML 100 ML IV SCH (19:29)
[2016-12-15] MEDS: AMIODARONE 200 MG TAB PO SCH (22:18)
[2016-12-15] MEDS: oxyCODONE/ACETAMINOPHEN 5 MG/325 MG TAB PO PRN (22:19)
[2016-12-15] MEDS: ONDANSETRON HCL 4 MG/2 ML VIAL IV PUSH PRN (22:39)
[2016-12-16] VITALS (18 sets, daily range): BP systolic 110–128; BP diastolic 47–74; PULSE 85–113; RESP 14–18; TEMP 97.7–99.5; O2SAT 94–99
[2016-12-16] MEDS: ACETAMINOPHEN 1000 MG/100 ML 100 ML IV SCH ×3 (02:08→13:41)
[2016-12-16] MEDS: PANTOPRAZOLE SOD 40 MG DELAYED RELEASE TAB PO SCH (04:12)
[2016-12-16] MEDS: oxyCODONE/ACETAMINOPHEN 5 MG/325 MG TAB PO PRN (04:12)
[2016-12-16 04:38] LABS: HEMATOCRIT 35.6 % (39.0-51.0); MEAN CELL VOLUME 86.8 FL (80.0-100.0); MEAN CORPUSCULAR HEMOGLOBIN 30.5 PG (27.0-34.0); MEAN CORPUSCULAR HGB CONC 35.2 % (32.0-36.0); PLATELET COUNT 120 TH/MM3 (150-450); RED BLOOD COUNT 4.11 MIL/MM3 (4.50-5.90); RED CELL DISTRIBUTION WIDTH 13.2 % (11.6-17.2); REVIEW FLAG FINAL; WHITE BLOOD COUNT 7.9 TH/MM3 (4.0-11.0)
--- NOTE | 2016-12-16 05:12 | RADRPT ---
EXAM DATE/TIME: 12/16/2016 04:20 [facility] COMPARISON: CHEST SINGLE AP, December 15, 2016, 18:31. INDICATIONS : Short of breath. MEDICAL HISTORY : Cardiovascular disease. SURGICAL HISTORY : Cardiac caths. ENCOUNTER: Subsequent ACUITY: 3 days PAIN SCORE: 0/10 LOCATION: Bilateral chest FINDINGS: A single view of the chest demonstrates unchanged position of right jugular central line, mediastinal and left-sided chest tube. No pneumothorax. Status post CABG. Lungs are relatively clear. Endotrache al tube and nasogastric tube have been removed. Osseous structures are intact. CONCLUSION: Status post CABG. Juanito Corrales MD on December 16, 2016 at 5:09 Board Certified Radiologist. This report was verified electronically.
[2016-12-16 05:17] LABS: BICARBONATE 24.6 MEQ/L (21.0-32.0); MAGNESIUM 2.2 MG/DL (1.5-2.5); POTASSIUM 4.9 MEQ/L (3.5-5.1)
[2016-12-16] MEDS: ONDANSETRON HCL 4 MG/2 ML VIAL IV PUSH PRN ×2 (06:11→11:32)
[2016-12-16] MEDS ORDERED: BISACODYL 10 MG SUPP RECTAL PRN (09:00)
[2016-12-16] MEDS ORDERED: SOD PHOSPHATE/SOD BIPHOSPHATE (ADULT) ENEMA 133ML RECTAL PRN (09:00)
[2016-12-16] MEDS ORDERED: DEXTROSE 50% IN WATER 50 ML VIAL(D50) IV PUSH PRN (09:00)
[2016-12-16] MEDS ORDERED: INSULIN DETEMIR 100 UNITS/ML VIAL SQ ONE (09:00)
[2016-12-16] MEDS ORDERED: GLUCAGON 1 MG/ML VIAL OTHER PRN (09:00)
[2016-12-16] MEDS ORDERED: ACETAMINOPHEN/HYDROcodone 325 MG/5 MG TAB PO PRN (09:15)
[2016-12-16] MEDS: PRAVASTATIN SOD 20 MG TAB PO SCH (09:54)
[2016-12-16] MEDS: ASPIRIN 81 MG CHEW TAB PO SCH (09:54)
[2016-12-16] MEDS: AMIODARONE 200 MG TAB PO SCH ×2 (09:54→20:24)
[2016-12-16] MEDS: SODIUM CHLORIDE 0.9% FLUSH 10 ML FLUSH IV FLUSH SCH ×2 (09:55→20:25)
[2016-12-16] MEDS: INSULIN ASPART SUPPLEMENTAL SCALE SQ SCH ×4 (10:00→22:06)
[2016-12-16] MEDS: FUROSEMIDE 40 MG/4 ML VIAL IV PUSH SCH (10:34)
[2016-12-16] MEDS: MULTIVITAMINS/MINERALS THERAPEUTIC TAB PO SCH (10:34)
[2016-12-16] MEDS: CLOPIDOGREL 75 MG TAB PO SCH (10:34)
[2016-12-16] MEDS ORDERED: METOPROLOL TARTRATE 25 MG TAB PO SCH (11:00)
[2016-12-16] MEDS: MAGNESIUM HYDROXIDE SUSP 30 ML CUP PO SCH (11:00)
[2016-12-16] MEDS: KETOROLAC TROMETHAMINE 30 MG/ML (IVP) VIAL IV PUSH PRN ×2 (13:40→22:07)
--- NOTE | 2016-12-16 13:59 | PD.CAR.PN ---
CVT Progress Note Subjective/Hospital Course: 56/ male history of coronary artery disease and PTCA and stent x2 in 2003 following an [place], and also again in 2013 where he had a PTCA and stent to the LAD. He had been doing well. He fast walks 5K races. He was starting to have some pain with exertion and heaviness in his left arm. He had follow- up appointment with Dr. Jarvis and underwent cardiac catheterization which showed ejection fraction of 60%. The left main had a 75-80% in the distal portion. The midportion of the LAD had in-stent stenosis of 90%. The left circumflex demonstrated a 90% stenosis at its origin from the left main. The distal circumflex had 80-90%. The posterior descending branch also demonstrated a high-grade stenosis of 90%. We were consulted to evaluate for coronary artery bypass grafting. PAST MEDICAL HISTORY: 1. Coronary artery disease with prior stenting x3., 2. Diabetes mellitus; on insulin., 3. Hyperlipidemia. ,4. Hypertension. surgery 12/15: CABG x 4, CUELLAR to LAD - fair, SVG to D1 - fair, SVG to OM2, SVG to PDA - fair, Right leg EVH extubated after surgery , crystalloid 2500cc, cell saver 500cc, EBL 1500cc 12/16 up in chair, painful + pericardial rub, on on toradol ECG NSR/ ST nonspecific t wave changes / no pericarditis gentle diuresis, placed on BB , plavix, ASA statin , amiodarone aggressive pulm toileting weaned off insulin gtt, start home meds in am transfer to stepdown unit Objective: GENERAL: SKIN: Warm and dry. prevena dressing to chest , karey wrap to right leg HEAD: Normocephalic. EYES: No scleral icterus. No injection or drainage. NECK: Supple, trachea midline. No JVD or lymphadenopathy. CARDIOVASCULAR: Regular rate and rhythm without murmurs, gallops, or rubs. mild general edema RESPIRATORY: Breath sounds equal bilaterally. No accessory muscle use. chest tube no air leak / drained 240cc/ 12 hrs GASTROINTESTINAL: Abdomen soft, non-tender, nondistended. MUSCULOSKELETAL: No cyanosis, or edema. BACK: Nontender without obvious deformity. No CVA tenderness. Vital Signs Date Time Temp Pulse Resp B/P (MAP) Pulse Ox O2 Delivery O2 Flow Rate FiO2 12/16/16 13:02 101 12/16/16 12:00 97 Nasal Cannula 2.00 12/16/16 11:56 98.1 98 16 124/67 (86) 97 Arterial Line 12/16/16 11:00 113 12/16/16 10:42 17 12/16/16 08:00 98 Nasal Cannula 5.00 12/16/16 07:39 18 12/16/16 07:20 94 Simple Mask 8.00 12/16/16 07:00 101 12/16/16 07:00 101 12/16/16 07:00 98.7 101 18 112/66 (81) 94 114/47 (69) 12/16/16 05:09 95 Nasal Cannula 2.00 12/16/16 05:08 14 12/16/16 03:16 99 12/16/16 03:16 98.7 99 14 110/63 (79) 95 122/61 (81) 12/16/16 00:30 97 Nasal Cannula 3.00 12/16/16 00:26 98.4 12/15/16 23:45 93 12/15/16 23:32 92 12/15/16 23:00 98.3 94 14 93/55 (68) 97 99/57 (71) 12/15/16 21:10 94 Simple Mask 8.00 12/15/16 21:02 92 Nasal Cannula 4 40 12/15/16 20:00 95 Mechanical Ventilator 50 12/15/16 20:00 97.4 89 9 119/76 (90) 96 126/69 (88) 12/15/16 20:00 89 12/15/16 20:00 50 12/15/16 18:20 97.8 86 10 96/64 (75) 96 114/61 (78) 12/15/16 18:15 96 50 12/15/16 17:45 40 Labs: Laboratory Tests Test 12/16/16 04:20 White Blood Count 7.9 TH/MM3 (4.0-11.0) Red Blood Count 4.11 MIL/MM3 (4.50-5.90) Hemoglobin 12.5 GM/DL (13.0-17.0) Hematocrit 35.6 % (39.0-51.0) Mean Corpuscular Volume 86.8 FL (80.0-100.0) Mean Corpuscular Hemoglobin 30.5 PG (27.0-34.0) Mean Corpuscular Hemoglobin Concent 35.2 % (32.0-36.0) Red Cell Distribution Width 13.2 % (11.6-17.2) Platelet Count 120 TH/MM3 (150-450) Mean Platelet Volume 8.9 FL (7.0-11.0) Blood Urea Nitrogen 13 MG/DL (7-18) Creatinine 0.73 MG/DL (0.60-1.30) Random Glucose 158 MG/DL (74-106) Calcium Level 8.0 MG/DL (8.5-10.1) Magnesium Level 2.2 MG/DL (1.5-2.5) Sodium Level 139 MEQ/L (136-145) Potassium Level 4.9 MEQ/L (3.5-5.1) Chloride Level 108 MEQ/L (98-107) Carbon Dioxide Level 24.6 MEQ/L (21.0-32.0) Anion Gap 6 MEQ/L (5-15) Estimat Glomerular Filtration Rate 112 ML/MIN (>89) Result Diagram: 12/16/1641912/16/16419 Telemetry: NSR/ ST (1) Unstable angina (2) S/P CABG (coronary artery bypass graft) Plan: on ASA, statin , BB amiodarone gentle diuresis OOB, ambulate pulm toileting transfer to stepdown unit (3) DM (diabetes mellitus) Plan: diabetic diet, insulin sliding scale start home meds in am (4) Hyperlipidemia Plan: on statin (5) Hypertension Plan: stable Nichole Galdamez Dec 16, 2016 13:59
[2016-12-16] MEDS: RESP: ALBUTEROL 2.5 MG/IPRATROPIUM 0.5 MG NEB (SCH) NEB ×2 (14:00→20:43)
[2016-12-16] MEDS: ACETAMINOPHEN/HYDROcodone 325 MG/5 MG TAB PO PRN ×3 (15:01→22:06)
[2016-12-16] MEDS: SENNOSIDES 8.6 MG TAB PO SCH (20:24)
[2016-12-16] MEDS: DOCUSATE SODIUM 100 MG CAP PO SCH (20:24)
[2016-12-16] MEDS: METOPROLOL TARTRATE 25 MG TAB PO SCH (20:24)
--- NOTE | 2016-12-16 21:16 | EKG ---
Date Performed: 12/16/2016 Time Performed: 04:59:42 PTAGE: 56 years EKG: Sinus tachycardia Leftward axis Poor R wave progression - probable normal variant Anterior T wave changes are nonspecific Borderline ECG PREVIOUS TRACING : 12/14/2016 07.34 Compared to the previous tracing rate faster DOCTOR: Josie Woodward Interpretating Date/Time 12/16/2016 21:15:08
[2016-12-17] VITALS (31 sets, daily range): BP systolic 106–151; BP diastolic 53–71; PULSE 81–120; RESP 18–21; TEMP 97.8–98.7; O2SAT 93–99
[2016-12-17] MEDS: INSULIN ASPART SUPPLEMENTAL SCALE SQ SCH ×5 (02:00→20:25)
[2016-12-17] MEDS: ACETAMINOPHEN/HYDROcodone 325 MG/5 MG TAB PO PRN ×5 (03:11→23:37)
[2016-12-17] MEDS: PANTOPRAZOLE SOD 40 MG DELAYED RELEASE TAB PO SCH (05:17)
[2016-12-17 05:53] LABS: AUTOMATED NEUTROPHIL # 6.7 TH/MM3 (1.8-7.7); BASOPHIL % 0.2 % (0.0-2.0); EOSINOPHIL % 0.5 % (0.0-4.0); HEMATOCRIT 31.3 % (39.0-51.0); HEMO FLAGS DIFF FINAL; LYMPH % 19.8 % (9.0-44.0); LYMPHOCYTE # 1.9 TH/MM3 (1.0-4.8); MEAN CELL VOLUME 88.7 FL (80.0-100.0); MEAN CORPUSCULAR HEMOGLOBIN 31.1 PG (27.0-34.0); MONO % 8.7 % (0.0-8.0); NEUT % 70.8 % (16.0-70.0); PLATELET COUNT 141 TH/MM3 (150-450); RED BLOOD COUNT 3.53 MIL/MM3 (4.50-5.90); RED CELL DISTRIBUTION WIDTH 13.7 % (11.6-17.2); WHITE BLOOD COUNT 9.5 TH/MM3 (4.0-11.0)
[2016-12-17 06:28] LABS: BICARBONATE 29.1 MEQ/L (21.0-32.0); MAGNESIUM 2.7 MG/DL (1.5-2.5); POTASSIUM 4.1 MEQ/L (3.5-5.1)
[2016-12-17] MEDS: POLYETHYLENE GLYCOL 17 GM PKG PO SCH (08:00)
[2016-12-17] MEDS: AMIODARONE 200 MG TAB PO SCH ×2 (08:01→20:25)
[2016-12-17] MEDS: MAGNESIUM HYDROXIDE SUSP 30 ML CUP PO SCH (08:02)
[2016-12-17] MEDS: METOPROLOL TARTRATE 25 MG TAB PO SCH (08:02)
[2016-12-17] MEDS: CLOPIDOGREL 75 MG TAB PO SCH (08:02)
[2016-12-17] MEDS: POTASSIUM CHLORIDE 20 MEQ CONTROLLED RELEASE TAB PO SCH (08:03)
[2016-12-17] MEDS: MULTIVITAMINS/MINERALS THERAPEUTIC TAB PO SCH (08:04)
[2016-12-17] MEDS: DOCUSATE SODIUM 100 MG CAP PO SCH ×2 (08:04→20:24)
[2016-12-17] MEDS: PRAVASTATIN SOD 20 MG TAB PO SCH (08:04)
[2016-12-17] MEDS: FUROSEMIDE 40 MG/4 ML VIAL IV PUSH SCH (08:06)
[2016-12-17] MEDS: ASPIRIN 81 MG CHEW TAB PO SCH (08:06)
[2016-12-17] MEDS: SODIUM CHLORIDE 0.9% FLUSH 10 ML FLUSH IV FLUSH SCH ×2 (08:07→20:25)
[2016-12-17] MEDS: RESP: ALBUTEROL 2.5 MG/IPRATROPIUM 0.5 MG NEB (SCH) NEB ×2 (08:31→13:23)
--- NOTE | 2016-12-17 09:28 | RSPPFT ---
DATE OF PROCEDURE: 12/14/16 COMMENTS: Spirometry shows FVC of 2.7 at 73% of predicted, FEV1 of 2.0 at 68%, FEV1/FVC ratio is normal. Flow is decreased at FEF 25, FEF 50, FEF 75 and FEF 25-75. Post-bronchodilator study was not done. IMPRESSION: 1. Mild small airways obstructive lung disease. 2. Post-bronchodilator study was not performed.
[2016-12-17] MEDS: metFORMIN HCL 500 MG TAB PO SCH ×2 (11:08→17:05)
[2016-12-17] MEDS ORDERED: ALPRAZolam 0.25 MG TAB PO PRN (14:30)
[2016-12-17] MEDS ORDERED: AMIODARONE 200 MG TAB PO ONE (14:30)
[2016-12-17] MEDS ORDERED: METOPROLOL TARTRATE 25 MG TAB PO ONE (14:30)
--- NOTE | 2016-12-17 14:53 | RADRPT ---
EXAM DATE/TIME: 12/17/2016 14:31 [facility] COMPARISON: CHEST SINGLE AP, December 16, 2016, 4:20. INDICATIONS : Evaluate for pneumothorax post chest tube removal MEDICAL HISTORY : Cardiovascular disease. SURGICAL HISTORY : CABG. Cardiac caths ENCOUNTER: Subsequent ACUITY: 2 days PAIN SCORE: 7/10 LOCATION: chest FINDINGS: Interval removal of left chest drainage tube. No evidence of pneumothorax. There is an opacity in t he left lower lung along the tract of the chest tube. Patchy infiltrates are present in the right in frahilar region. Right central line tip is projected over the caval atrial junction. Heart is upper limits normal size. Evidence of prior median sternotomy. CONCLUSION: 1. No evidence of pneumothorax status post removal left chest drainage tube and mediastinal drain. 2. New small patchy right infrahilar infiltrate. Rajesh De Paz MD on December 17, 2016 at 14:50 Board Certified Radiologist. This report was verified electronically.
--- NOTE | 2016-12-17 18:05 | PD.CAR.PN ---
CVT Progress Note Subjective/Hospital Course: 56/ male history of coronary artery disease and PTCA and stent x2 in 2003 following an [place], and also again in 2013 where he had a PTCA and stent to the LAD. He had been doing well. He fast walks 5K races. He was starting to have some pain with exertion and heaviness in his left arm. He had follow- up appointment with Dr. Jarvis and underwent cardiac catheterization which showed ejection fraction of 60%. The left main had a 75-80% in the distal portion. The midportion of the LAD had in-stent stenosis of 90%. The left circumflex demonstrated a 90% stenosis at its origin from the left main. The distal circumflex had 80-90%. The posterior descending branch also demonstrated a high-grade stenosis of 90%. We were consulted to evaluate for coronary artery bypass grafting. PAST MEDICAL HISTORY: 1. Coronary artery disease with prior stenting x3., 2. Diabetes mellitus; on insulin., 3. Hyperlipidemia. ,4. Hypertension. surgery 12/15: CABG x 4, CUELLAR to LAD - fair, SVG to D1 - fair, SVG to OM2, SVG to PDA - fair, Right leg EVH extubated after surgery , crystalloid 2500cc, cell saver 500cc, EBL 1500cc 12/16 up in chair, painful + pericardial rub, on on toradol ECG NSR/ ST nonspecific t wave changes / no pericarditis gentle diuresis, placed on BB , plavix, ASA statin , amiodarone aggressive pulm toileting weaned off insulin gtt, start home meds in am transfer to stepdown unit 12/17 chest tube removed without difficulty pt later became very anxious / SOB and tachycardic after breathing treatment stat CXR done/ no PTX BB and amiodarone increased continue aggressive pulm toileting OOB, ambulate Levemir added at night / metformin resumed Objective: GENERAL: SKIN: Warm and dry. 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 EYES: No scleral icterus. No injection or drainage. NECK: Supple, trachea midline. No JVD or lymphadenopathy. CARDIOVASCULAR: Regular rate and rhythm without murmurs, gallops, or rubs. RESPIRATORY: Breath sounds equal bilaterally. No accessory muscle use. diminished in bases GASTROINTESTINAL: Abdomen soft, non-tender, nondistended. MUSCULOSKELETAL: No cyanosis, or edema. BACK: Nontender without obvious deformity. No CVA tenderness. Vital Signs Date Time Temp Pulse Resp B/P (MAP) Pulse Ox O2 Delivery O2 Flow Rate FiO2 12/17/16 15:00 109 12/17/16 15:00 Nasal Cannula 2.00 12/17/16 15:00 98.4 104 21 115/53 (73) 96 12/17/16 14:21 20 12/17/16 14:09 108 20 143/62 (89) 96 12/17/16 14:00 98.2 120 20 151/70 (97) 95 12/17/16 11:05 98.1 94 18 118/62 (80) 93 12/17/16 11:00 94 Room Air 12/17/16 11:00 95 12/17/16 08:30 94 21 12/17/16 07:00 91 12/17/16 07:00 95 Room Air Nasal Cannula 12/17/16 07:00 98.4 96 20 136/62 (86) 95 12/17/16 06:06 92 12/17/16 05:36 89 12/17/16 04:10 86 12/17/16 03:22 88 12/17/16 03:20 97.8 90 111/66 (81) 98 12/17/16 03:20 Nasal Cannula 2.00 12/17/16 02:22 85 12/17/16 01:16 81 12/17/16 00:10 98.1 83 106/55 (72) 97 12/17/16 00:00 88 12/16/16 23:37 85 12/16/16 23:35 Nasal Cannula 2.00 12/16/16 22:00 86 12/16/16 21:00 100 12/16/16 20:43 99 High Flow Nasal Cannula 2.00 12/16/16 20:00 94 12/16/16 19:00 97.7 95 114/57 (76) 97 12/16/16 19:00 94 12/16/16 19:00 Nasal Cannula 2.00 Result Diagram: 12/17/1651412/17/16514 (1) Unstable angina (2) S/P CABG (coronary artery bypass graft) Plan: on ASA, statin , (BB amiodarone doses increased) gentle diuresis OOB, ambulate pulm toileting (3) DM (diabetes mellitus) Plan: diabetic diet, insulin sliding scale start home meds (4) Hyperlipidemia Plan: on statin (5) Hypertension Plan: stable (6) Anxiety Plan: Nichole Davila Dec 17, 2016 18:05
[2016-12-17] MEDS: RESP: IPRATROPIUM 0.5 MG/2.5 ML NEB NEB SCH (20:00)
[2016-12-17] MEDS: SENNOSIDES 8.6 MG TAB PO SCH (20:24)
[2016-12-17] MEDS: METOPROLOL TARTRATE 50 MG TAB PO SCH (20:24)
[2016-12-17] MEDS: INSULIN DETEMIR 100 UNITS/ML VIAL SQ SCH (20:25)
[2016-12-18] VITALS (27 sets, daily range): BP systolic 114–138; BP diastolic 55–67; PULSE 64–108; RESP 16–20; TEMP 97.8–98.5; O2SAT 93–96
[2016-12-18] MEDS: RESP: IPRATROPIUM 0.5 MG/2.5 ML NEB NEB SCH ×6 (03:45→21:05)
[2016-12-18] MEDS: PANTOPRAZOLE SOD 40 MG DELAYED RELEASE TAB PO SCH (04:55)
[2016-12-18] MEDS: ACETAMINOPHEN/HYDROcodone 325 MG/5 MG TAB PO PRN ×4 (04:58→19:45)
[2016-12-18 05:55] LABS: BICARBONATE 29.4 MEQ/L (21.0-32.0); MAGNESIUM 2.5 MG/DL (1.5-2.5); POTASSIUM 4.4 MEQ/L (3.5-5.1)
[2016-12-18] MEDS: INSULIN ASPART SUPPLEMENTAL SCALE SQ SCH ×3 (08:00→17:00)
[2016-12-18] MEDS: POLYETHYLENE GLYCOL 17 GM PKG PO SCH (09:26)
[2016-12-18] MEDS: MAGNESIUM HYDROXIDE SUSP 30 ML CUP PO SCH (09:27)
[2016-12-18] MEDS: PRAVASTATIN SOD 20 MG TAB PO SCH (09:28)
[2016-12-18] MEDS: FUROSEMIDE 40 MG/4 ML VIAL IV PUSH SCH (09:28)
[2016-12-18] MEDS: POTASSIUM CHLORIDE 20 MEQ CONTROLLED RELEASE TAB PO SCH (09:28)
[2016-12-18] MEDS: DOCUSATE SODIUM 100 MG CAP PO SCH ×2 (09:29→21:00)
[2016-12-18] MEDS: AMIODARONE 200 MG TAB PO SCH ×2 (09:29→21:11)
[2016-12-18] MEDS: metFORMIN HCL 500 MG TAB PO SCH ×2 (09:29→17:33)
[2016-12-18] MEDS: ASPIRIN 81 MG CHEW TAB PO SCH (09:30)
[2016-12-18] MEDS: METOPROLOL TARTRATE 50 MG TAB PO SCH ×2 (09:30→21:11)
[2016-12-18] MEDS: MULTIVITAMINS/MINERALS THERAPEUTIC TAB PO SCH (09:31)
[2016-12-18] MEDS: CLOPIDOGREL 75 MG TAB PO SCH (09:32)
[2016-12-18] MEDS: SODIUM CHLORIDE 0.9% FLUSH 10 ML FLUSH IV FLUSH SCH ×2 (09:32→21:14)
[2016-12-18] MEDS: ONDANSETRON HCL 4 MG/2 ML VIAL IV PUSH PRN (10:50)
--- NOTE | 2016-12-18 16:40 | PD.CAR.PN ---
CVT Progress Note Subjective/Hospital Course: 56/ male history of coronary artery disease and PTCA and stent x2 in 2003 following an [place], and also again in 2012 where he had a PTCA and stent to the LAD. He had been doing well. He fast walks 5K races. He was starting to have some pain with exertion and heaviness in his left arm. He had follow- up appointment with Dr. Jarvis and underwent cardiac catheterization which showed ejection fraction of 60%. The left main had a 75-80% in the distal portion. The midportion of the LAD had in-stent stenosis of 90%. The left circumflex demonstrated a 90% stenosis at its origin from the left main. The distal circumflex had 80-90%. The posterior descending branch also demonstrated a high-grade stenosis of 90%. We were consulted to evaluate for coronary artery bypass grafting. PAST MEDICAL HISTORY: 1. Coronary artery disease with prior stenting x3., 2. Diabetes mellitus; on insulin., 3. Hyperlipidemia. ,4. Hypertension. surgery 12/15: CABG x 4, CUELLAR to LAD - fair, SVG to D1 - fair, SVG to OM2, SVG to PDA - fair, Right leg EVH extubated after surgery , crystalloid 2500cc, cell saver 500cc, EBL 1500cc 12/16 up in chair, painful + pericardial rub, on on toradol ECG NSR/ ST nonspecific t wave changes / no pericarditis gentle diuresis, placed on BB , plavix, ASA statin , amiodarone aggressive pulm toileting weaned off insulin gtt, start home meds in am transfer to stepdown unit 12/17 chest tube removed without difficulty pt later became very anxious / SOB and tachycardic after breathing treatment stat CXR done/ no PTX BB and amiodarone increased continue aggressive pulm toileting OOB, ambulate Levemir added at night / metformin resumed 12/18 had some nausea this am , treated with zofran , then had BM and felt better wean off 02 eval for discharge home Objective: Vital Signs Date Time Temp Pulse Resp B/P (MAP) Pulse Ox O2 Delivery O2 Flow Rate FiO2 12/18/16 16:28 18 12/18/16 15:00 Room Air 12/18/16 15:00 97.8 87 18 116/55 (75) 94 12/18/16 15:00 87 12/18/16 14:00 88 12/18/16 13:00 88 12/18/16 12:00 82 12/18/16 11:00 Room Air 12/18/16 11:00 89 12/18/16 11:00 98.4 89 18 114/61 (78) 94 12/18/16 10:00 108 12/18/16 09:00 98 12/18/16 08:00 86 12/18/16 07:39 94 21 12/18/16 07:09 Room Air 12/18/16 07:00 85 12/18/16 07:00 98.3 88 20 119/65 (83) 95 12/18/16 06:34 87 12/18/16 05:37 88 12/18/16 04:04 82 12/18/16 04:03 98.5 86 115/59 (77) 93 12/18/16 03:29 82 12/18/16 03:27 Nasal Cannula 2.00 12/18/16 02:00 82 12/18/16 01:00 92 12/18/16 00:00 84 12/17/16 23:00 98.7 87 111/56 (74) 99 12/17/16 23:00 Nasal Cannula 2.00 12/17/16 23:00 84 12/17/16 22:00 90 12/17/16 21:39 98.5 100 119/71 (87) 94 12/17/16 21:39 Nasal Cannula 2.00 12/17/16 21:00 92 12/17/16 20:16 94 Nasal Cannula 2.00 12/17/16 20:00 94 12/17/16 19:00 91 12/17/16 18:00 96 12/17/16 17:00 102 Labs: Laboratory Tests Test 12/18/16 05:00 Blood Urea Nitrogen 24 MG/DL (7-18) Creatinine 0.81 MG/DL (0.60-1.30) Random Glucose 109 MG/DL (74-106) Calcium Level 8.4 MG/DL (8.5-10.1) Phosphorus Level 2.5 MG/DL (2.5-4.9) Magnesium Level 2.5 MG/DL (1.5-2.5) Sodium Level 139 MEQ/L (136-145) Potassium Level 4.4 MEQ/L (3.5-5.1) Chloride Level 103 MEQ/L (98-107) Carbon Dioxide Level 29.4 MEQ/L (21.0-32.0) Anion Gap 7 MEQ/L (5-15) Estimat Glomerular Filtration Rate 99 ML/MIN (>89) Result Diagram: 12/17/16 0515 12/18/16 0500 Cardiovascular: NSR (1) Unstable angina (2) S/P CABG (coronary artery bypass graft) Plan: on ASA, statin , (BB amiodarone doses increased) gentle diuresis OOB, ambulate pulm toileting (3) DM (diabetes mellitus) Plan: diabetic diet, insulin sliding scale home meds (4) Hyperlipidemia Plan: on statin (5) Hypertension Plan: stable (6) Anxiety Plan: Nichole Barragan Dec 18, 2016 16:39
[2016-12-18] MEDS ORDERED: HYDR-3516 PO (16:43)
[2016-12-18] MEDS ORDERED: METO-309 PO (16:43)
[2016-12-18] MEDS ORDERED: PLAV75TA29 PO (16:43)
[2016-12-18] MEDS ORDERED: AMIO200T PO (16:43)
[2016-12-18] MEDS ORDERED: DOCU1CAP39 PO (16:43)
--- NOTE | 2016-12-18 16:48 | HHI.DS ---
Discharge Summary Admission Date Dec 14, 2016 at 12:11 Discharge Date: Dec 19, 2016 Admitting Diagnosis chest pain , CAD (1) Hx of coronary artery disease ICD Codes: Z86.79 - Personal history of other diseases of the circulatory system Status: Chronic (2) HTN (hypertension) Diagnosis: Principal ICD Codes: I10 - Essential (primary) hypertension Status: Chronic (3) Unstable angina Diagnosis: Principal ICD Codes: I20.0 - Unstable angina Status: Chronic (4) Anxiety Diagnosis: Principal ICD Codes: F41.9 - Anxiety disorder, unspecified Status: Chronic (5) Chest pain Diagnosis: Principal ICD Codes: R07.9 - Chest pain, unspecified Status: Acute (6) DM (diabetes mellitus) Diagnosis: Secondary ICD Codes: E11.9 - Type 2 diabetes mellitus without complications Status: Acute (7) Hyperlipidemia Diagnosis: Principal ICD Codes: E78.5 - Hyperlipidemia, unspecified Status: Chronic (8) Hypertension Diagnosis: Principal ICD Codes: I10 - Essential (primary) hypertension Status: Chronic (9) S/P CABG (coronary artery bypass graft) Diagnosis: Secondary ICD Codes: Z95.1 - Presence of aortocoronary bypass graft Procedures CABG x 4 12/15 CUELLAR to LAD - fair SVG to D1 - fair SVG to OM2 SVG to PDA - fair Right leg EVH Brief History 56/ male history of coronary artery disease and PTCA and stent x2 in 2004 following an [place], and also again in 2012 where he had a PTCA and stent to the LAD. He had been doing well. He fast walks 5K races. He was starting to have some pain with exertion and heaviness in his left arm. He had follow- up appointment with Dr. Jarvis and underwent cardiac catheterization which showed ejection fraction of 60%. The left main had a 75-80% in the distal portion. The midportion of the LAD had in-stent stenosis of 90%. The left circumflex demonstrated a 90% stenosis at its origin from the left main. The distal circumflex had 80-90%. The posterior descending branch also demonstrated a high-grade stenosis of 90%. We were consulted to evaluate for coronary artery bypass grafting. PAST MEDICAL HISTORY: 1. Coronary artery disease with prior stenting x3., 2. Diabetes mellitus; on insulin., 3. Hyperlipidemia. ,4. Hypertension. CBC/BMP: 12/17/16 0515 12/18/16 0500 Significant Findings Laboratory Tests Test 12/16/16 04:20 12/17/16 05:15 12/18/16 05:00 Red Blood Count 4.11 MIL/MM3 (4.50-5.90) 3.53 MIL/MM3 (4.50-5.90) Hemoglobin 12.5 GM/DL (13.0-17.0) 11.0 GM/DL (13.0-17.0) Hematocrit 35.6 % (39.0-51.0) 31.3 % (39.0-51.0) Platelet Count 120 TH/MM3 (150-450) 141 TH/MM3 (150-450) Random Glucose 158 MG/DL (74-106) 109 MG/DL (74-106) 109 MG/DL (74-106) Calcium Level 8.0 MG/DL (8.5-10.1) 7.9 MG/DL (8.5-10.1) 8.4 MG/DL (8.5-10.1) Chloride Level 108 MEQ/L (98-107) Neutrophils (%) (Auto) 70.8 % (16.0-70.0) Monocytes (%) (Auto) 8.7 % (0.0-8.0) Blood Urea Nitrogen 26 MG/DL (7-18) 24 MG/DL (7-18) Magnesium Level 2.7 MG/DL (1.5-2.5) Estimat Glomerular Filtration Rate 80 ML/MIN (>89) Imaging Last Impressions Chest X-Ray 12/17/16 0000 Signed Impressions: Service Date/Time: November 14:31 - CONCLUSION: 1. No evidence of pneumothorax status post removal left chest drainage tube and mediastinal drain. 2. New small patchy right infrahilar infiltrate. Rajesh De Paz MD Lower Extremity Ultrasound 12/14/16 1222 Signed Impressions: Service Date/Time: Wednesday, December 14, 2016 13:26 - CONCLUSION: 1. Lower extremity venous mapping, as above. Keenan Washington MD Carotid Artery Ultrasound 12/14/16 0000 Signed Impressions: Service Date/Time: Wednesday, December 14, 2016 12:51 - CONCLUSION: Calcified plaque in the left carotid bulb and proximal internal carotid artery. Hemodynamic profile on both sides characteristic of less than 50%% stenosis. Rajesh De Paz MD PE at Discharge GENERAL: SKIN: Warm and dry. prevena dressing to chest , incision intact right leg HEAD: Atraumatic. Normocephalic. EYES: Pupils equal and round. No scleral icterus. No injection or drainage. ENT: No nasal bleeding or discharge. Mucous membranes pink and moist. NECK: Trachea midline. No JVD. CARDIOVASCULAR: Regular rate and rhythm. RESPIRATORY: No accessory muscle use. Clear to auscultation. Breath sounds equal bilaterally. GASTROINTESTINAL: Abdomen soft, non-tender, nondistended. Hepatic and splenic margins not palpable. MUSCULOSKELETAL: Extremities without clubbing, cyanosis, or edema. No obvious deformities. NEUROLOGICAL: Awake and alert. No obvious cranial nerve deficits. Motor grossly within normal limits. Five out of 5 muscle strength in the arms and legs. Normal speech. PSYCHIATRIC: Appropriate mood and affect; insight and judgment normal. Hospital Course surgery 12/15: CABG x 4, CUELLAR to LAD - fair, SVG to D1 - fair, SVG to OM2, SVG to PDA - fair, Right leg EVH extubated after surgery , crystalloid 2500cc, cell saver 500cc, EBL 1500cc 12/16 up in chair, painful + pericardial rub, on on toradol ECG NSR/ ST nonspecific t wave changes / no pericarditis gentle diuresis, placed on BB , plavix, ASA statin , amiodarone aggressive pulm toileting weaned off insulin gtt, start home meds in am transfer to stepdown unit 12/17 chest tube removed without difficulty pt later became very anxious / SOB and tachycardic after breathing treatment stat CXR done/ no PTX BB and amiodarone increased continue aggressive pulm toileting OOB, ambulate Levemir added at night / metformin resumed 12/18 episode of nausea steven mackey, resolved, + BM now on room air eval for dc in am continue BB Pt Condition on Discharge: Good Discharge Disposition: Disch w/ Home Health Serv Discharge Instructions DIET: Follow Instructions for: Diabetic Diet Activities you can perform: Full Weight Bearing, Shower Only-No Bath Activities to avoid: Driving Nichole Galdamez Dec 18, 2016 16:48
--- NOTE | 2016-12-18 16:49 | HHI.DS ---
Discharge Summary Admission Date Dec 14, 2016 at 12:11 Admitting Diagnosis (1) Hx of coronary artery disease ICD Codes: Z86.79 - Personal history of other diseases of the circulatory system Status: Chronic (2) HTN (hypertension) Diagnosis: Principal ICD Codes: I10 - Essential (primary) hypertension Status: Chronic (3) Unstable angina Diagnosis: Principal ICD Codes: I20.0 - Unstable angina Status: Chronic (4) Anxiety Diagnosis: Principal ICD Codes: F41.9 - Anxiety disorder, unspecified Status: Chronic (5) Chest pain Diagnosis: Principal ICD Codes: R07.9 - Chest pain, unspecified Status: Acute (6) DM (diabetes mellitus) Diagnosis: Secondary ICD Codes: E11.9 - Type 2 diabetes mellitus without complications Status: Acute (7) Hyperlipidemia Diagnosis: Principal ICD Codes: E78.5 - Hyperlipidemia, unspecified Status: Chronic (8) Hypertension Diagnosis: Principal ICD Codes: I10 - Essential (primary) hypertension Status: Chronic (9) S/P CABG (coronary artery bypass graft) Diagnosis: Secondary ICD Codes: Z95.1 - Presence of aortocoronary bypass graft Procedures CABG x 4 12/15 CUELLAR to LAD - fair SVG to D1 - fair SVG to OM2 SVG to PDA - fair Right leg EVH Brief History 56/ male history of coronary artery disease and PTCA and stent x2 in 2003 following an [place], and also again in 2012 where he had a PTCA and stent to the LAD. He had been doing well. He fast walks 5K races. He was starting to have some pain with exertion and heaviness in his left arm. He had follow- up appointment with Dr. Jarvis and underwent cardiac catheterization which showed ejection fraction of 60%. The left main had a 75-80% in the distal portion. The midportion of the LAD had in-stent stenosis of 90%. The left circumflex demonstrated a 90% stenosis at its origin from the left main. The distal circumflex had 80-90%. The posterior descending branch also demonstrated a high-grade stenosis of 90%. We were consulted to evaluate for coronary artery bypass grafting. PAST MEDICAL HISTORY: 1. Coronary artery disease with prior stenting x3., 2. Diabetes mellitus; on insulin., 3. Hyperlipidemia. ,4. Hypertension. CBC/BMP: 12/17/16 0515 12/18/16 0500 Significant Findings Laboratory Tests Test 12/16/16 04:20 12/17/16 05:15 12/18/16 05:00 Red Blood Count 4.11 MIL/MM3 (4.50-5.90) 3.53 MIL/MM3 (4.50-5.90) Hemoglobin 12.5 GM/DL (13.0-17.0) 11.0 GM/DL (13.0-17.0) Hematocrit 35.6 % (39.0-51.0) 31.3 % (39.0-51.0) Platelet Count 120 TH/MM3 (150-450) 141 TH/MM3 (150-450) Random Glucose 158 MG/DL (74-106) 109 MG/DL (74-106) 109 MG/DL (74-106) Calcium Level 8.0 MG/DL (8.5-10.1) 7.9 MG/DL (8.5-10.1) 8.4 MG/DL (8.5-10.1) Chloride Level 108 MEQ/L (98-107) Neutrophils (%) (Auto) 70.8 % (16.0-70.0) Monocytes (%) (Auto) 8.7 % (0.0-8.0) Blood Urea Nitrogen 26 MG/DL (7-18) 24 MG/DL (7-18) Magnesium Level 2.7 MG/DL (1.5-2.5) Estimat Glomerular Filtration Rate 80 ML/MIN (>89) PE at Discharge GENERAL: SKIN: Warm and dry. prevena dressing to chest , incision intact right leg HEAD: Atraumatic. Normocephalic. EYES: Pupils equal and round. No scleral icterus. No injection or drainage. ENT: No nasal bleeding or discharge. Mucous membranes pink and moist. NECK: Trachea midline. No JVD. CARDIOVASCULAR: Regular rate and rhythm. RESPIRATORY: No accessory muscle use. Clear to auscultation. Breath sounds equal bilaterally. GASTROINTESTINAL: Abdomen soft, non-tender, nondistended. Hepatic and splenic margins not palpable. MUSCULOSKELETAL: Extremities without clubbing, cyanosis, or edema. No obvious deformities. NEUROLOGICAL: Awake and alert. No obvious cranial nerve deficits. Motor grossly within normal limits. Five out of 5 muscle strength in the arms and legs. Normal speech. PSYCHIATRIC: Appropriate mood and affect; insight and judgment normal. Pt Condition on Discharge: Good Discharge Disposition: Disch w/ Home Health Serv Discharge Instructions DIET: Follow Instructions for: Diabetic Diet Activities you can perform: Full Weight Bearing, Shower Only-No Bath Activities to avoid: Driving Nichole Galdamez Dec 18, 2016 16:48
--- NOTE | 2016-12-18 16:52 | HHI.DS ---
Discharge Summary Admission Date Dec 14, 2016 at 12:11 Admitting Diagnosis (1) Hx of coronary artery disease ICD Codes: Z86.79 - Personal history of other diseases of the circulatory system Status: Chronic (2) HTN (hypertension) Diagnosis: Principal ICD Codes: I10 - Essential (primary) hypertension Status: Chronic (3) Unstable angina Diagnosis: Principal ICD Codes: I20.0 - Unstable angina Status: Chronic (4) Anxiety Diagnosis: Principal ICD Codes: F41.9 - Anxiety disorder, unspecified Status: Chronic (5) Chest pain Diagnosis: Principal ICD Codes: R07.9 - Chest pain, unspecified Status: Acute (6) DM (diabetes mellitus) Diagnosis: Secondary ICD Codes: E11.9 - Type 2 diabetes mellitus without complications Status: Acute (7) Hyperlipidemia Diagnosis: Principal ICD Codes: E78.5 - Hyperlipidemia, unspecified Status: Chronic (8) Hypertension Diagnosis: Principal ICD Codes: I10 - Essential (primary) hypertension Status: Chronic (9) S/P CABG (coronary artery bypass graft) Diagnosis: Secondary ICD Codes: Z95.1 - Presence of aortocoronary bypass graft Procedures CABG x 4 12/15 CUELLAR to LAD - fair SVG to D1 - fair SVG to OM2 SVG to PDA - fair Right leg EVH Brief History 56/ male history of coronary artery disease and PTCA and stent x2 in 2003 following an [place], and also again in 2012 where he had a PTCA and stent to the LAD. He had been doing well. He fast walks 5K races. He was starting to have some pain with exertion and heaviness in his left arm. He had follow- up appointment with Dr. Jarvis and underwent cardiac catheterization which showed ejection fraction of 60%. The left main had a 75-80% in the distal portion. The midportion of the LAD had in-stent stenosis of 90%. The left circumflex demonstrated a 90% stenosis at its origin from the left main. The distal circumflex had 80-90%. The posterior descending branch also demonstrated a high-grade stenosis of 90%. We were consulted to evaluate for coronary artery bypass grafting. PAST MEDICAL HISTORY: 1. Coronary artery disease with prior stenting x3., 2. Diabetes mellitus; on insulin., 3. Hyperlipidemia. ,4. Hypertension. CBC/BMP: 12/17/16 0515 12/18/16 0500 Significant Findings Laboratory Tests Test 12/16/16 04:20 12/17/16 05:15 12/18/16 05:00 Red Blood Count 4.11 MIL/MM3 (4.50-5.90) 3.53 MIL/MM3 (4.50-5.90) Hemoglobin 12.5 GM/DL (13.0-17.0) 11.0 GM/DL (13.0-17.0) Hematocrit 35.6 % (39.0-51.0) 31.3 % (39.0-51.0) Platelet Count 120 TH/MM3 (150-450) 141 TH/MM3 (150-450) Random Glucose 158 MG/DL (74-106) 109 MG/DL (74-106) 109 MG/DL (74-106) Calcium Level 8.0 MG/DL (8.5-10.1) 7.9 MG/DL (8.5-10.1) 8.4 MG/DL (8.5-10.1) Chloride Level 108 MEQ/L (98-107) Neutrophils (%) (Auto) 70.8 % (16.0-70.0) Monocytes (%) (Auto) 8.7 % (0.0-8.0) Blood Urea Nitrogen 26 MG/DL (7-18) 24 MG/DL (7-18) Magnesium Level 2.7 MG/DL (1.5-2.5) Estimat Glomerular Filtration Rate 80 ML/MIN (>89) PE at Discharge GENERAL: SKIN: Warm and dry. prevena dressing to chest , incision intact right leg HEAD: Atraumatic. Normocephalic. EYES: Pupils equal and round. No scleral icterus. No injection or drainage. ENT: No nasal bleeding or discharge. Mucous membranes pink and moist. NECK: Trachea midline. No JVD. CARDIOVASCULAR: Regular rate and rhythm. RESPIRATORY: No accessory muscle use. Clear to auscultation. Breath sounds equal bilaterally. GASTROINTESTINAL: Abdomen soft, non-tender, nondistended. Hepatic and splenic margins not palpable. MUSCULOSKELETAL: Extremities without clubbing, cyanosis, or edema. No obvious deformities. NEUROLOGICAL: Awake and alert. No obvious cranial nerve deficits. Motor grossly within normal limits. Five out of 5 muscle strength in the arms and legs. Normal speech. PSYCHIATRIC: Appropriate mood and affect; insight and judgment normal. Pt Condition on Discharge: Good Discharge Disposition: Disch w/ Home Health Serv Discharge Instructions DIET: Follow Instructions for: Diabetic Diet Activities you can perform: Full Weight Bearing, Shower Only-No Bath Activities to avoid: Driving Additional Activity Instructio: no lifting > 8 lbs or gallon of milk Follow up Referrals: Cardiology with Nick Jarvis MD PCP Follow-up with Konrad Adrian MD Surgical with Nati Hawk MD New Orders: BASIC METABOLIC PROF - 2 Weeks CBC NO DIFF - 2 Weeks X-RAY CHEST PA & LAT - 2 Weeks New Medications: Amiodarone (Amiodarone) 200 Mg Tab 200 MG PO Q12HR for heart rhythm, #28 TAB 0 Refills Clopidogrel (Plavix) 75 Mg Tab 75 MG PO DAILY for Blood Clot Prevention, #30 TAB 2 Refills Docusate Sodium (Dok) 100 Mg Cap 100 MG PO BID for Constipation, #60 CAP Hydrocodone-Acetaminophen (Hydrocodone-Acetaminophen) 5-325 mg Tab 1 TAB PO Q4H PRN for PAIN SCALE 1 TO 5, #40 TAB 0 Refills Metoprolol Tartrate (Lopressor) 50 Mg Tab 50 MG PO BID for Blood Pressure Management, #60 TAB 2 Refills Continued Medications: Aspirin DR (Aspirin DR) 81 Mg Tabdr 81 MG PO DAILY, TAB 0 Refills Coenzyme Q10 (Ubidecarenone) (Coq-10) 30 Mg Cap Fish Oil-Cholecalciferol ([place]-3 Fish Oil/Vitamin) 1,000-1,000 Mg Cap 1 CAP PO DAILY for Nutritional Supplement, CAP 0 Refills Insulin Aspart Inj (Novolog Flexpen Inj) 300 Unit/3 Ml Pen 4 UNITS SQ for Blood Sugar Management, #1 PEN 0 Refills Insulin Degludec Inj (Tresiba Flextouch Pen Inj) 600 unit/3 ML Pen 42 UNITS SQ for Blood Sugar Management, #9 ML 0 Refills Metformin (Metformin) 500 Mg Tab 500 MG PO BIDPC for Blood Sugar Management, #60 TAB 0 Refills Multiple Vitamin (Multiple Vitamin) 1 Tab 1 TAB PO DAILY for Nutritional Supplement, TAB 0 Refills Pravastatin (Pravastatin) 20 Mg Tab 20 MG PO DAILY for Cholesterol Management, #30 TAB 0 Refills Discontinued Medications: Lisinopril (Lisinopril) 10 Mg Tab 10 MG PO DAILY, #30 TAB 0 Refills Metoprolol Tartrate (Metoprolol Tartrate) 100 Mg Tab 100 MG PO BID, #60 TAB 0 Refills Nichole Galdamez Dec 18, 2016 16:52
[2016-12-18] MEDS: SENNOSIDES 8.6 MG TAB PO SCH (21:00)
[2016-12-18] MEDS: INSULIN DETEMIR 100 UNITS/ML VIAL SQ SCH (21:12)
[2016-12-19] VITALS (12 sets, daily range): BP systolic 106–136; BP diastolic 56–68; PULSE 75–89; RESP 16–17; TEMP 98.2–98.3; O2SAT 94–95
[2016-12-19] MEDS: RESP: IPRATROPIUM 0.5 MG/2.5 ML NEB NEB SCH ×3 (01:03→07:45)
[2016-12-19] MEDS: ACETAMINOPHEN/HYDROcodone 325 MG/5 MG TAB PO PRN ×2 (02:05→08:37)
[2016-12-19] MEDS: PANTOPRAZOLE SOD 40 MG DELAYED RELEASE TAB PO SCH (06:25)
[2016-12-19] MEDS: FUROSEMIDE 40 MG/4 ML VIAL IV PUSH SCH (08:36)
[2016-12-19] MEDS: PRAVASTATIN SOD 20 MG TAB PO SCH (08:37)
[2016-12-19] MEDS: MULTIVITAMINS/MINERALS THERAPEUTIC TAB PO SCH (08:38)
[2016-12-19] MEDS: CLOPIDOGREL 75 MG TAB PO SCH (08:38)
[2016-12-19] MEDS: ASPIRIN 81 MG CHEW TAB PO SCH (08:38)
[2016-12-19] MEDS: AMIODARONE 200 MG TAB PO SCH (08:38)
[2016-12-19] MEDS: POTASSIUM CHLORIDE 20 MEQ CONTROLLED RELEASE TAB PO SCH (08:39)
[2016-12-19] MEDS: SODIUM CHLORIDE 0.9% FLUSH 10 ML FLUSH IV FLUSH SCH (08:39)
[2016-12-19] MEDS: metFORMIN HCL 500 MG TAB PO SCH (08:39)
[2016-12-19] MEDS: DOCUSATE SODIUM 100 MG CAP PO SCH (08:40)
[2016-12-19] MEDS: POLYETHYLENE GLYCOL 17 GM PKG PO SCH (08:40)
[2016-12-19] MEDS: MAGNESIUM HYDROXIDE SUSP 30 ML CUP PO SCH (08:40)
[2016-12-19] MEDS: METOPROLOL TARTRATE 50 MG TAB PO SCH (08:42)
== END 2016-12-19 10:20 | disposition home health service (06) | DRG 234 ==
LOC: HDOC 06:41 → HDIC 06:42 → HDOC 12:10 → HCPC 12:11 → HCVI 12-15 18:21 → HCPC 12-16 11:25
PROVIDERS: ADMIT Internal Medicine Cardiovascular Disease; ATTEND Thoracic Surgery (Cardiothoracic Vascular Surgery)
PROC: 4A023N7 Measurement of Cardiac Sampling and Pressure, Left Heart, Percutaneous Approach (ICD-10-PCS; 2016-12-14)
PROC: B2111ZZ Fluoroscopy of Multiple Coronary Arteries using Low Osmolar Contrast (ICD-10-PCS; 2016-12-14)
PROC: B2151ZZ Fluoroscopy of Left Heart using Low Osmolar Contrast (ICD-10-PCS; 2016-12-14)
PROC: 021209W Bypass Coronary Artery, Three Arteries from Aorta with Autologous Venous Tissue, Open Approach (ICD-10-PCS; 2016-12-15)
PROC: 06BP4ZZ Excision of Right Saphenous Vein, Percutaneous Endoscopic Approach (ICD-10-PCS; 2016-12-15)
PROC: 5A1221Z Performance of Cardiac Output, Continuous (ICD-10-PCS; 2016-12-15)
PROC: 02100Z9 Bypass Coronary Artery, One Artery from Left Internal Mammary, Open Approach (ICD-10-PCS; principal; 2016-12-15 12:57)
DX: I25.110 Atherosclerotic heart disease of native coronary artery with unstable angina pectoris (principal); T82.855A Stenosis of coronary artery stent, initial encounter; I25.2 Old myocardial infarction; I10 Essential (primary) hypertension; E11.9 Type 2 diabetes mellitus without complications; E78.5 Hyperlipidemia, unspecified; R11.0 Nausea; F41.9 Anxiety disorder, unspecified; Y83.1 Surgical operation with implant of artificial internal device as the cause of abnormal reaction of the patient, or of later complication, without mention of misadventure at the time of the procedure; Z79.4 Long term (current) use of insulin
CPT/HCPCS: 71010; 71020; 80048; 80053; 81001; 82948; 83036; 83735; 84100; 85025; 85027; 85610; 86850; 86900; 86901; 86920; 87641; 93005; 93458; 93880; 93970; 93998; 94002; 94010; 94150; 94640; 94664; 94667; 94668; 99152; 99153; C1769; C1893; J0131; J0690; J1644; J1815; J1817; J1885; J1940; J2060; J2150; J2250; J2270; J2405; J2440; J2930; J3010; J3370; J3480; J7030; P9045; P9047; Q9967